=== PATIENT | male | born 1970 | race African-American/Black ===

== ENCOUNTER 2020-12-12 08:21 | Emergency (ER) | payer OTHER, SELFPAY ==
[2020-12-12 09:19] VITALS: BP 123/82; PULSE 58; RESP 12; TEMP 36.8; O2SAT 98; BMI 31.4
[2020-12-12 09:38] LABS: MANUAL DIFF FLAG NO
[2020-12-12 09:44] LABS: Basophils Percent Auto 0.2 % (0-2); Eosinophils Percent Auto 0.3 % (0-4); Hemoglobin 14.8 g/dl (14.0-18.0); Imm Gran Abs Auto 0.05 X10*3/uL (0.00-0.03); Imm Gran Pct Auto 0.5 % (0.0-0.4); Lymphocytes Absolute Auto 1.5 X10*3/uL (1.2-4.9); Lymphocytes Percent Auto 15.7 % (20-40); Mean Corpuscular HGB Conc 32.9 g/dl (31.0-36.0); Mean Corpuscular Hemoglobin 28.4 pg (27.0-33.0); Mean Corpuscular Volume 86.4 fL (80-98); Mean Platelet Volume 9.1 fL (9.4-12.4); Monocytes Absolute Auto 0.8 X10*3/uL (0.1-1.2); Monocytes Percent Auto 7.7 % (2-11); Neutrophils Absolute Auto 7.4 X10*3/uL (2.0-8.3); Neutrophils Percent Auto 75.6 % (45-73); Platelet Count 271 X10*3/uL (160-400); Red Blood Count 5.21 X10*6/uL (4.60-5.80); Red Cell Distribution Width 12.9 % (11.0-16.0); White Blood Count 9.8 X10*3/uL (4.8-10.8)
--- NOTE | 2020-12-12 09:57 | ED_ITS ---
HPI - Headache General Chief Complaint: Headache Stated Complaint: migraine Time Seen by Provider: 12/12/20 09:33 Source: patient Mode of arrival: ambulatory History of Present Illness HPI Narrative: 50yo male with a medical history migraines presenting to the ED complaining of migraine headache x a few weeks worsening yesterday s/p seeing sharepoint solutions architect. Admits to associated photophobia, nausea, vomiting, neck pain, and chest tightness yesterday, denies at present. Reports sharepoint solutions architect believes patient has temporal arteritis, would like to schedule for outpatient biopsy. Patient is followed by our neurologist Dr. Amin, currently takes Sumatriptan, Verapamil, and is on Prednisone taper. Admits headache is similar to priors just worse. Headache not maximal in onset denies LOC, visual loss, SOB, abdominal pain, weakness, numbness MD elicited complaint: headache Onset (ago): day(s) Related Data Home Medications Medication Instructions Recorded Confirmed valacyclovir 1 gram tablet 1,000 mg PO DAILY 11/27/20 Previous Rx's Medication Instructions Recorded tadalafil 20 mg tablet 20 mg PO DAILY PRN #30 tab 11/16/20 [id number]-[id number] 1 cap PO Q4-6H PRN #10 cap 12/12/20 [Fioricet] Allergies Allergy/AdvReac Type Severity Reaction Status Date / Time No Known Allergies Allergy Unverified 08/07/20 16:26 Review of Systems Review of Systems: Constitutional: No Weight loss, No Fever, No Chills ENT/Mouth: No sore throat, No Rhinorrhea, No Swallowing Difficulty Eyes: No Eye Pain, + photophobia, No visual changes Cardiovascular: +Chest Pain, No SOB, No Dyspnea on Exertion Respiratory: No Cough, No Sputum Gastrointestinal: + Nausea, + Vomiting, No Diarrhea, No Constipation, No Abdominal pain Genitourinary: No irregular bleeding, No Dysuria, No Urinary Frequency, No Hematuria Musculoskeletal: No joint pain, No Myalgias, No Joint Swelling Skin: No Skin Lesions, No rash Neuro: No Weakness, No Numbness, No Paresthesias, No Loss of Consciousness, + lightheadedness, + Headache Yes all other systems are reviewed and are negative Eyes: Eyes: Reports photophobia Neurologic: Denies Sensory deficit (Neuro) COUNT INCLUDES THE [facility] Past Medical History Attestation statement: The following information was validated with the patient. Medical History (Updated 12/12/20 @ 11:14 by NYDIA Bojorquez) Migraines Surgical History (Updated 08/27/20 @ 07:19 by DUNCAN Matos) No pertinent past surgical history Family History Family History (Updated 08/27/20 @ 07:18 by DUNCAN Matos) Father Diabetes Mother History of breast cancer Hypertension Social History Social History Advance Directives: No Advance Directives Information Provided: No Physical Exam Vital Signs: Vital Signs: Last Vital Signs Temp 98.2 F 12/12/20 09:19 Pulse 58 12/12/20 09:19 Resp 12 12/12/20 09:19 BP 123/82 12/12/20 09:19 Pulse Ox 98 12/12/20 09:19 Body Mass Index 31.4 Const: General: cooperative, healthy appearing and awake Orientation/consciousness: patient oriented x3 Limitations: no limitations HENMT: Head: Yes normal to inspection Ears: hearing grossly normal bilaterally General nose exam: Normal external nose present Face and sinus: Yes normal facial exam Mouth: Normal oral and palatal mucosa present Throat: Yes posterior oropharynx normal and Yes uvula midline Eyes: General: appearance normal, both eyes and all related structures Pupils: Equal, round and reactive pupils present EOM: EOMs intact bilaterally Direct Ophthalmoscopy: photophobia Neck: Neck: Yes normal visual inspection, Yes full ROM and Yes no meningeal signs Resp: Effort & Inspection: normal respiratory effort Auscultation: clear to auscultation bilaterally, no rales, no rhonchi and no wheezes Cardio: Rate: regular rate Heart sounds: S1 normal heart sound present and S2 normal heart sound present GI: Inspection: Yes normal to inspection Palpation (GI): Soft to palpation, nontender, no guarding and not rigid Skin: Rashes: no rashes Wounds: no wounds Neuro: General: patient oriented x3, gait normal, tone normal, moves all extremities, no meningeal signs, no focal motor deficits and CN's II-XI intact bilaterally Cranial nerves: Yes Equal, round and reactive pupils present Cognition (Neuro): normal cognition Gait exam (Neuro): Normal gait present Motor exam (neuro): 5/5 motor strength present throughout and Pronator motor function not present Sensory Exam: No Sensory deficit (Neuro) Publicity Consultant rdination: [id number] test normal Extrem: General: Yes normal to inspection Course Course Course Narrative: * 1114-labs unremarkable, troponin negative. On re-evaluation patient reports headache much improved, states he is ready for discharge. Worrisome signs and symptoms and strict return precautions discussed. Patient is to follow-up with ophthalmology and neurology. Will send Fioricet to the pharmacy as does not at home MDM - Headache MDM Narrative Medical decision making narrative: 50yo male with a medical history migraines presenting to the ED complaining of migraine headache x a few weeks worsening ye sterday s/p seeing sharepoint solutions architect. Admits to associated photophobia, nausea, vomiting, neck pain, and chest tightness yesterday, denies at present. On exam VSS, NAD/nontoxic appearing, no focal neuro deficits. Concern for complicated migraine headache. Low concern for meningitis/encephalitis, ICH/CVT. Rule out ACS. Possibly temporal arteritis although patient already on steroid taper Plan: EKG, labs, IVF/symptomatic therapies, reassess Medical Records Attestation: I reviewed the patient's medical records. Lab Data Attestation: I reviewed the patient's lab results. Result diagrams: 12/12/20 09:34 12/12/20 09:34 Labs: Lab Results 12/12/20 12/12/20 12/12/20 Range/Units 09:34 09:34 09:34 WBC 9.8 (4.8-10.8) X10*3/uL RBC 5.21 (4.60-5.80) X10*6/uL Hgb 14.8 (14.0-18.0) g/dl Hct 45.0 (42-52) % MCV 86.4 (80-98) fL MCH 28.4 (27.0-33.0) pg MCHC 32.9 (31.0-36.0) g/dl RDW 12.9 (11.0-16.0) % Plt Count 271 (160-400) X10*3/uL MPV 9.1 L (9.4-12.4) fL Immature Gran % (Auto) 0.5 H (0.0-0.4) % Neut % (Auto) 75.6 H (45-73) % Lymph % (Auto) 15.7 L (20-40) % [place] % (Auto) 7.7 (2-11) % Eos % (Auto) 0.3 (0-4) % Baso % (Auto) 0.2 (0-2) % Lymph # (Auto) 1.5 (1.2-4.9) X10*3/uL [place] # (Auto) 0.8 (0.1-1.2) X10*3/uL Eos # (Auto) 0.0 (0.0-0.4) X10*3/uL Baso # (Auto) 0.0 (0.0-0.2) X10*3/uL Abs Immat Gran (auto) 0.05 H (0.00-0.03) X10*3/uL Absolute Neuts (auto) 7.4 (2.0-8.3) X10*3/uL Absolute Nucleated RBC 0.000 (0.0-0.012) X10*3/uL Nucleated RBC % (auto) 0.0 (0.0-0.2) /100WBC Hold Purple Top SEE NOTE Hold Blue Top SEE NOTE Sodium (135-145) mmol/L Potassium (3.3-5.1) mmol/l Chloride (96-108) mmol/L Carbon Dioxide (22-29) mmol/L Anion Gap (12-20) BUN (9-16) mg/dL Creatinine (0.5-1.4) mg/dL Estim Creat Clear Calc Estimated GFR Random Glucose (60-115) mg/dL Calcium (8.4-10.2) mg/dL Troponin I High Sens (<3.5-35.0) ng/L 12/12/20 12/12/20 Range/Units 09:34 09:34 WBC (4.8-10.8) X10*3/uL RBC (4.60-5.80) X10*6/uL Hgb (14.0-18.0) g/dl Hct (42-52) % MCV (80-98) fL MCH (27.0-33.0) pg MCHC (31.0-36.0) g/dl RDW (11.0-16.0) % Plt Count (160-400) X10*3/uL MPV (9.4-12.4) fL Immature Gran % (Auto) (0.0-0.4) % Neut % (Auto) (45-73) % Lymph % (Auto) (20-40) % [place] % (Auto) (2-11) % Eos % (Auto) (0-4) % Baso % (Auto) (0-2) % Lymph # (Auto) (1.2-4.9) X10*3/uL [place] # (Auto) (0.1-1.2) X10*3/uL Eos # (Auto) (0.0-0.4) X10*3/uL Baso # (Auto) (0.0-0.2) X10*3/uL Abs Immat Gran (auto) (0.00-0.03) X10*3/uL Absolute Neuts (auto) (2.0-8.3) X10*3/uL Absolute Nucleated RBC (0.0-0.012) X10*3/uL Nucleated RBC % (auto) (0.0-0.2) /100WBC Hold Purple Top Hold Blue Top Sodium 137 (135-145) mmol/L Potassium 3.5 (3.3-5.1) mmol/l Chloride 103 (96-108) mmol/L Carbon Dioxide 28 (22-29) mmol/L Anion Gap 10 L (12-20) BUN 15 (9-16) mg/dL Creatinine 1.10 (0.5-1.4) mg/dL Estim Creat Clear Calc 98.8 Estimated GFR > 60 Random Glucose 106 (60-115) mg/dL Calcium 8.4 (8.4-10.2) mg/dL Troponin I High Sens < 3.5 (<3.5-35.0) ng/L ECG Data Attestation: I personally reviewed and interpreted this ECG as follows: ECG interpretation date: 12/12/20 Interpretation: EKG normal sinus rhythm. Rate of 64. Artifact present. Nonischemic changes. Discharge Plan Discharge Clinical Impression: Migraine Qualifiers: Migraine type: unspecified Status migrainosus presence: with status migrainosus Intractability: not intractable Qualified Code(s): G43.901 - Migraine, unspecified, not intractable, with status migrainosus Patient Disposition: Home, Self-Care Instructions: Migraine Headache (ED) Additional Instructions: Your blood work was reassuring today in the emergency department Fioricet is a headache medication, take as needed Continue taking home prescribed medications Follow-up with your neurologist and sharepoint solutions architect If her symptoms persist or worsen, pain becomes unbearable, you have weakness, persistent nausea/vomiting, chest pain or shortness of breath return to the ED Prescriptions: New [id number]-[id number] [Fioricet] 50-300-40 mg capsule 1 cap PO Q4-6H PRN (Reason: headache) Qty: 10 RF: 0 No Action tadalafil 20 mg tablet 20 mg PO DAILY PRN (Reason: erectile dysfunction) Qty: 30 RF: 3 valacyclovir 1 gram tablet 1,000 mg PO DAILY RF: 0 Referrals: Angel Espinal [Physician] - 2 days Kamila Amin MD [Physician] - 3 days
[2020-12-12] MEDS: Metoclopramide HCl 10 MG/2 ML VIAL IVPUSH (09:58)
[2020-12-12] MEDS: Butalb/Acetamin/Caff 50/325/40 TABLET 2 TAB PO (09:59)
[2020-12-12 10:01] LABS: Anion Gap 10 (12-20); Blood Urea Nitrogen 15 mg/dL (9-16); Calcium 8.4 mg/dL (8.4-10.2); Carbon Dioxide 28 mmol/L (22-29); Chloride 103 mmol/L (96-108); Creatinine Clr Calc Pharmacy 98.8; Estimated Glomerular Filt Rate > 60; Glucose Random 106 mg/dL (60-115); Potassium 3.5 mmol/l (3.3-5.1); Sodium 137 mmol/L (135-145)
[2020-12-12] MEDS: 0.9 % Sodium Chloride 1,000 ML 999 ML IVCONT (10:03)
--- NOTE | 2020-12-12 10:34 | ECG_ITS ---
Test Reason : GENERAL MEDICAL Blood Pressure : / mmHG Vent. Rate : 064 BPM Atrial Rate : 064 BPM P-R Int : 158 ms QRS Dur : 086 ms QT Int : 400 ms P-R-T Axes : 052 005 017 degrees QTc Int : 412 ms Artifact in tracing Normal sinus rhythm Cannot rule out Anterior infarct (cited on or before 12-DEC-2020) - more likely to be from lead placement Otherwise normal EKG When compared with ECG of 01-OCT-2009 21:24, No significant change was found Referred By: Valentine Ramirez Electronically Signed By:JEANIE FIELDS
[2020-12-12 11:04] LABS: Troponin-I High Sensitivity < 3.5 ng/L (<3.5-35.0)
[2020-12-12 11:33] VITALS: BP 142/85; PULSE 66; RESP 16; O2SAT 97
== END 2020-12-12 11:36 | disposition home or self-care (01) ==
PROVIDERS: Physician Assistant; Emergency Provider Internal Medicine; PCP Internal Medicine
DX: G43.901 Migraine, unspecified, not intractable, with status migrainosus (principal)
CPT/HCPCS: 36415; 80048; 84484; 85025; 93005; 96361; 96374; 99283; 99284; J2765; J3030

== ENCOUNTER 2020-12-15 10:05 | Outpatient (REF) | payer OTHER, SELFPAY ==
[2020-12-15 11:34] LABS: Anion Gap 14 (12-20); Blood Urea Nitrogen 16 mg/dL (9-16); Calcium 8.9 mg/dL (8.4-10.2); Carbon Dioxide 27 mmol/L (22-29); Chloride 103 mmol/L (96-108); Estimated Glomerular Filt Rate > 60; Glucose Random 86 mg/dL (60-115); Sodium 140 mmol/L (135-145)
[2020-12-15 11:39] LABS: Erythrocyte Sedimentation Rate 1 MM/HR (0-15)
[2020-12-17 13:32] LABS: Anti Nuclear Antibody Screen NEGATIVE (NEGATIVE)
== END 2020-12-15 10:06 | disposition home or self-care (01) ==
LOC: HO.LAB 10:05
PROVIDERS: PCP Internal Medicine; Visit Provider Psychiatry & Neurology Neurology
DX: G44.021 Chronic cluster headache, intractable (principal)
CPT/HCPCS: 36415; 80048; 85652; 86038; 86039

== ENCOUNTER 2020-12-22 08:56 | Outpatient (REF) | payer OTHER, SELFPAY ==
--- NOTE | 2020-12-22 08:59 | MR_ITS ---
EXAMINATION: MR BRAIN WITHOUT AND WITH CONTRAST CLINICAL INFORMATION: Chronic cluster headaches. COMPARISON: None available. TECHNIQUE: Multiplanar, multisequence imaging of the brain was performed before and after the intravenous administration of 10 mL of Gadavist. FINDINGS: There is no acute infarction, mass, hemorrhage, or extra-axial collection. No abnormal or unexpected intracranial enhancement is seen. The ventricles, sulci, and basilar cisterns are normal in size and configuration. A few minimal nonspecific foci of T2 hyperintensity are seen within the cerebral white matter. The midline structures appear normally formed. The corpus callosum terminates above the foramen magnum. Sella appears partially empty but is otherwise within normal limits. The flow voids of the major intracranial arteries appear intact. The bones and extracranial soft tissues are within normal limits. Mild paranasal sinus mucosal thickening is seen without fluid levels. MR/MR head/brain wo/w con IMPRESSION: No mass lesion, acute infarction, or abnormal intracranial enhancement.
== END 2020-12-22 08:57 | disposition home or self-care (01) ==
LOC: HO.MRI 08:56
PROVIDERS: Visit Provider Psychiatry & Neurology Neurology
DX: G44.021 Chronic cluster headache, intractable (principal)
CPT/HCPCS: 70553; A9585

== ENCOUNTER 2020-12-22 10:04 | Inpatient (IN) | payer OTHER, SELFPAY ==
[2020-12-22 10:08] VITALS: BP 144/80; PULSE 67; RESP 16; TEMP 37.1; BMI 31.4
--- NOTE | 2020-12-22 10:08 | ED_ITS ---
HPI - Headache General Chief Complaint: Headache Stated Complaint: dizziness Time Seen by Provider: 12/22/20 10:05 Source: patient Mode of arrival: other (stretcher from MRI) Limitations: no limitations History of Present Illness HPI Narrative: 50 yo male with L sided severe headaches since 11/27 - no precipitating factors has been seen by Neurology and ophtho - had completed prednisone taper for possible GCA - here today had MRI and it was completed, due to the lights and noise it triggered his migraine - L sided pain and feels nauseated and dizzy, rapid response called due to dizziness and not feeling well, did not fall MD elicited complaint: migraine Pertinent past history: migraines Onset (ago): day(s) (last night but much worse after MRI) Onset description: gradually and while at rest Location: left and temporal Severity: similar to previous episodes Quality & Timing: throbbing, constant and similar to previous headaches Exacerbating factors: movement of head/neck, light and noise Relieving factors: nothing Context: occurred at rest Associated symptoms: nausea and photophobia Treatments prior to arrival: other (took imitrex x 2 last night) Related Data Home Medications Medication Instructions Recorded Confirmed valacyclovir 1 gram tablet 1,000 mg PO DAILY 11/27/20 12/22/20 sumatriptan succinate 6 mg SUBCUT ONCE PRN 12/22/20 12/22/20 verapamil 120 mg PO DAILY 12/22/20 12/22/20 Previous Rx's Medication Instructions Recorded tadalafil 20 mg tablet 20 mg PO DAILY PRN #30 tab 11/16/20 [id number]-qekcgtdjxprbx-yrdc 1 cap PO Q4-6H PRN #10 cap 12/12/20 [Fioricet] Allergies Allergy/AdvReac Type Severity Reaction Status Date / Time No Known Allergies Allergy Unverified 08/07/20 16:26 Review of Systems Review of Systems: Constitutional : No Fever, No Chills, No Fatigue ENT/Mouth : No sore throat, No Rhinorrhea Eyes: pos Eye Pain, No Swelling, No Redness Cardiovascular : No Chest Pain, No SOB, No Dyspnea on Exertion Respiratory : No Cough, No Sputum Gastrointestinal : pos Nausea, No Vomiting, No Diarrhea, No abdominal Pain Genitourinary : No Dysuria, No Urinary Frequency, No Hematuria, Musculoskeletal : No joint pain, No Myalgias, No Joint Swelling Skin : No Skin Lesions, No rash Neuro : No Weakness, No Numbness, pos Dizziness, positive Headache Psych : No Anxiety/Panic, No Depression Heme/Lymph: No Bruising, No Bleeding,No Lymphadenopathy Endocrine : No Polyuria, No Polydipsia All other systems reviewed and are negative [facility] Past Medical History Attestation statement: The following information was validated with the patient. Medical History Migraines Surgical History No pertinent past surgical history Family History Family History (Updated 08/27/20 @ 07:18 by Susy Mckenzie Spike) Father Diabetes Mother History of breast cancer Hypertension Social History Social History (Updated 12/22/20 @ 10:20 by Sandra Aguilar DO) Smoking Status: Never smoker Use of substances other than those prescribed or required for medical reasons: No Advance Directives: Yes Advance Directives Information Provided: Yes Advance Directives on File: No Physical Exam Vital Signs: Vital Signs: Last Vital Signs Temp 98.8 F 12/22/20 13:21 Pulse 64 12/22/20 13:21 Resp 16 12/22/20 13:21 BP 134/75 12/22/20 13:21 Pulse Ox 97 12/22/20 13:21 Body Mass Index 31.4 Appearance: Alert. Oriented X3. Anxious in pain, mild acute distress Eyes: marked photophobia ENT: Pharynx normal. Neck: Normal inspection. Neck supple. CVS: Normal heart rate and rhythm. Pulses normal. Respiratory: No respiratory distress. Breath sounds normal. Abdomen: Soft and nontender. Skin: Skin warm and dry. Normal skin color. Normal skin turgor. Extremities: No lower extremity edema. No calf ttp Neuro: Oriented X 3. No motor deficit. No sensory deficit. Course Course Course Narrative: MRI negative for mass/infarction - called for STAT read given patient now in ED repeat pain medications, still with headache, no response to IV dilaudid after migraine cocktail and O2, will try IV dexamethasone if no improvement may need admission patient states he wants to stay he does not feel better dsicussed with Dr. Amin start on DHE protocol will start on 10mg metoclopramide over 30 min followed by 0.5 DHE over 1 minute, if goes well call pharmacy they will put in rest of protocol MDM - Headache MDM Narrative Medical decision making narrative: 50 yo male with migraines no AC therapy under the care of neurology and ophthalmology completed MRI today but due to the lights and noise it worsened his headache, doubt SAH/[employer] infection, will need IV medications to improve pain - reglan/benadryl/ toradol/magnesium, dispo per results and workup, has appointment with Dr. Espinal at 130pm today Lab Data Result diagrams: 12/22/20 15:07 12/22/20 15:07 Labs: Lab Results 12/22/20 Range/Units 15:07 WBC 5.3 (4.8-10.8) X10*3/uL RBC 5.15 (4.60-5.80) X10*6/uL Hgb 14.5 (14.0-18.0) g/dl Hct 44.4 (42-52) % MCV 86.2 (80-98) fL MCH 28.2 (27.0-33.0) pg MCHC 32.7 (31.0-36.0) g/dl RDW 12.4 (11.0-16.0) % Plt Count 226 (160-400) X10*3/uL MPV 9.6 (9.4-12.4) fL Immature Gran % (Auto) 0.2 (0.0-0.4) % Neut % (Auto) 58.7 (45-73) % Lymph % (Auto) 30.7 (20-40) % [place] % (Auto) 8.9 (2-11) % Eos % (Auto) 0.9 (0-4) % Baso % (Auto) 0.6 (0-2) % Lymph # (Auto) 1.6 (1.2-4.9) X10*3/uL [place] # (Auto) 0.5 (0.1-1.2) X10*3/uL Eos # (Auto) 0.1 (0.0-0.4) X10*3/uL Baso # (Auto) 0.0 (0.0-0.2) X10*3/uL Abs Immat Gran (auto) 0.01 (0.00-0.03) X10*3/uL Absolute Neuts (auto) 3.1 (2.0-8.3) X10*3/uL Absolute Nucleated RBC 0.000 (0.0-0.012) X10*3/uL Nucleated RBC % (auto) 0.0 (0.0-0.2) /100WBC Critical Care Time Critical Care Time Critical Care Time: Yes Total Critical Care Time: 35 Attestation: medical consult, repeat IV medications, call to radiology for stat MRI read. I attest to this time spent taking care of the patient Discharge Plan Discharge Clinical Impression: Migraine Qualifiers: Migraine type: without aura Status migrainosus presence: with status migrainosus Intractability: intractable Qualified Code(s): G43.011 - Migraine without aura, intractable, with status migrainosus Patient Disposition: Admitted As Inpatient Additional Instructions: return to ED for any worsening symptoms or concerns MRI read: There is no acute infarction, mass, hemorrhage, or extra-axial collection. No abnormal or unexpected intracranial enhancement is seen. The ventricles, sulci, and basilar cisterns are normal in size and configuration. A few minimal nonspecific foci of T2 hyperintensity are seen within the cerebral white matter. The midline structures appear normally formed. The corpus callosum terminates above the foramen magnum. Sella appears partially empty but is otherwise within normal limits. The flow voids of the major intracranial arteries appear intact. The bones and extracranial soft tissues are within normal limits. Mild paranasal sinus mucosal thickening is seen without fluid levels. MR/MR head/brain wo/w con IMPRESSION: No mass lesion, acute infarction, or abnormal intracranial enhancement.
[2020-12-22] MEDS: Ketorolac Tromethamine 30 MG/ML VIAL IVPUSH (10:27)
[2020-12-22] MEDS: Magnesium Sulfate/H2O 2 GM/50 ML PIGGYBACK IV (10:27)
[2020-12-22] MEDS: 0.9 % Sodium Chloride 1,000 ML 999 ML IVCONT (10:27)
[2020-12-22] MEDS: Metoclopramide HCl 10 MG/2 ML VIAL IVPUSH (10:27)
[2020-12-22] MEDS: diphenhydrAMINE HCL 50 MG/ML VIAL 25 MG IVPUSH (10:28)
[2020-12-22] MEDS: HYDROmorphone HCl 1 MG/ML SYRINGE IVPUSH (13:05)
[2020-12-22 13:21] VITALS: BP 134/75; PULSE 64; RESP 16; TEMP 37.1; O2SAT 97
[2020-12-22] MEDS: dexAMETHasone sod phosphate 4 MG/ML VIAL 6 MG IVPUSH (14:15)
[2020-12-22 15:40] LABS: MANUAL DIFF FLAG NO
[2020-12-22 15:44] LABS: Basophils Percent Auto 0.6 % (0-2); Eosinophils Absolute Auto 0.1 X10*3/uL (0.0-0.4); Eosinophils Percent Auto 0.9 % (0-4); Hematocrit 44.4 % (42-52); Hemoglobin 14.5 g/dl (14.0-18.0); Imm Gran Abs Auto 0.01 X10*3/uL (0.00-0.03); Imm Gran Pct Auto 0.2 % (0.0-0.4); Lymphocytes Absolute Auto 1.6 X10*3/uL (1.2-4.9); Lymphocytes Percent Auto 30.7 % (20-40); Mean Corpuscular HGB Conc 32.7 g/dl (31.0-36.0); Mean Corpuscular Hemoglobin 28.2 pg (27.0-33.0); Mean Corpuscular Volume 86.2 fL (80-98); Mean Platelet Volume 9.6 fL (9.4-12.4); Monocytes Absolute Auto 0.5 X10*3/uL (0.1-1.2); Monocytes Percent Auto 8.9 % (2-11); Neutrophils Absolute Auto 3.1 X10*3/uL (2.0-8.3); Neutrophils Percent Auto 58.7 % (45-73); Platelet Count 226 X10*3/uL (160-400); Red Blood Count 5.15 X10*6/uL (4.60-5.80); Red Cell Distribution Width 12.4 % (11.0-16.0); White Blood Count 5.3 X10*3/uL (4.8-10.8)
[2020-12-22 15:50] LABS: INTERNATIONAL NORM RATIO 1.1 (0.9-1.1); Prothrombin Time 12.9 SEC (10.8-13.0)
[2020-12-22 15:52] LABS: Partial Thromboplastin Time 38.1 SEC (24.1-38.0)
[2020-12-22 16:03] LABS: COVID-19 Test Negative (Negative); IDNOW Serial# 9DD0AD1C
[2020-12-22 16:09] LABS: Anion Gap 11 (12-20); Blood Urea Nitrogen 12 mg/dL (9-16); Calcium 8.3 mg/dL (8.4-10.2); Carbon Dioxide 27 mmol/L (22-29); Chloride 105 mmol/L (96-108); Creatinine Clr Calc Pharmacy 87.6; Estimated Glomerular Filt Rate > 60; Glucose Random 94 mg/dL (60-115); Potassium 4.5 mmol/L (3.3-5.1); Sodium 138 mmol/L (135-145)
--- NOTE | 2020-12-22 16:28 | PM.EVENT ---
Event Note Date of Service: 12/22/20 Event Note: Patient seen and examined independently and was present during page portion of E/M service. Agree with midlevel's history, physical, assessment, and plan. 50M presented with severe migraines migraines DHE protocol neuro eval
[2020-12-22 16:35] VITALS: BP 137/70; PULSE 68; RESP 18
[2020-12-22] MEDS: Dihydroergotamine Mesylate 1 MG/ML AMPUL 0.5 MG IVPUSH (16:41)
[2020-12-22 19:43] VITALS: BP 137/77; PULSE 78; RESP 20; TEMP 36.2; O2SAT 96
--- NOTE | 2020-12-22 21:15 | HP_ITS ---
DATE OF SERVICE: 12/22/2020 CHIEF COMPLAINT: Headache. HISTORY OF PRESENT ILLNESS: A 50-year-old man with a history of migraine headaches, presents with complaints of intractable migraine. He reports that this has been ongoing over the last 3 weeks and it has been mostly off and on, but today, he went for an MRI and experienced a severe headache and was brought over to the ER for further evaluation. He reports that he does take verapamil and Imitrex at home, which usually abort his migraines. He reports his pain is near the left advent, radiating to the left eye socket. He does have photophobia. He denies any nausea or vomiting. In the ER, he received multiple medications including Benadryl, magnesium, Toradol, Reglan, Dilaudid, Decadron, and was given a dose of D.H.E. with good effect. His labs were all within acceptable limits. Vital signs stable. He will be admitted for further management and treatment of acute intractable migraine headache. PAST MEDICAL HISTORY: Migraine headaches. PAST SURGICAL HISTORY: None. FAMILY HISTORY: Father had diabetes, stroke. He had a younger brother at the age of 82 of myocardial infarction. SOCIAL HISTORY: Denies any alcohol, tobacco, or illicit drug use. ALLERGIES: NO KNOWN ALLERGIES. MEDICATIONS: 1. Fioricet 1 cap p.o. q4-6 hours as needed for headache. 2. Sumatriptan succinate 6 mg subcu p.r.n. 3. Tadalafil 20 mg p.o. daily p.r.n. 4. Valacyclovir 1000 mg p.o. daily. 5. Verapamil 120 mg p.o. daily. REVIEW OF SYSTEMS: CONSTITUTIONAL: Denies any recent fever, chills, or decrease in appetite. RESPIRATORY: Denies any shortness of breath, cough, or sputum production. CARDIOVASCULAR: Denies any chest pain, orthopnea, PND, or edema. GASTROINTESTINAL: Denies any dysphagia, abdominal pain, nausea, vomiting, or diarrhea. GENITOURINARY: Denies any dysuria, frequency, or hematuria. MUSCULOSKELETAL: Denies any joint pain or swelling. NEUROPSYCH: Denies any weakness or seizures. All other systems are reviewed and are negative. PHYSICAL EXAMINATION: CONSTITUTIONAL: Resting in bed, appearing in no acute distress. VITAL SIGNS: 98.8, , 18, 137/70, 97% on room air. SKIN: Intact without rash or open sores. HEENT: Head is normocephalic, atraumatic. Eyes, pupils are PERRLA. Sclerae anicteric. Mouth and throat, mucous membrane are intact and moist. NECK: Supple. No lymphadenopathy. No JVD noted. CHEST: Clear to auscultation without wheezes, rhonchi, or rales. HEART: Regular rate and rhythm. Clear S1, S2. No murmurs, rubs, or gallops. ABDOMEN: Positive bowel sounds. Soft, nontender. No hepatomegaly or splenomegaly noted. NEURO: The patient is alert and oriented x3. Cranial nerves II through XII are grossly intact without focal deficits. LABORATORY DATA: Sodium 138, potassium is 4.5, chloride is 105, bicarb is 27, BUN is 12, creatinine is 1.24. WBC is 5.3, hemoglobin 14.5, hematocrit 44.4, platelets 226. ASSESSMENT AND PLAN: 50-year-old man, who is being admitted with intractable migraine headache. 1. Intractable migraine. Received D.H.E. with good effect. We will continue Reglan as needed 30 minutes prior and EEG every 8 hours, next dose at midnight. The patient to be evaluated by Neurology in the morning. Continue verapamil. 2. MRI showed no acute mass, infarction, or other acute intracranial abnormality. 3. Deep vein thrombosis prophylaxis with early ambulation. 4. Case discussed with Dr. Georges. 5. Full code. COMPA Marino MD JR/CEDRICL / [id number]
[2020-12-22 21:55] VITALS: BMI 31.9
[2020-12-22] MEDS: Metoclopramide HCl 10 MG TABLET PO (23:47)
[2020-12-22] MEDS: 0.9 % Sodium Chloride Flush 3 ML SYRINGE IVFLUSH (23:47)
[2020-12-23] VITALS: BP 140/75; PULSE 80; RESP 18; TEMP 37; O2SAT 98
[2020-12-23] MEDS: Dihydroergotamine Mesylate 1 MG/ML AMPUL 0.5 MG IVPUSH ×2 (00:29→12:36)
[2020-12-23 03:59] VITALS: BP 135/69; PULSE 76; RESP 18; TEMP 36.9; O2SAT 98
[2020-12-23 06:21] LABS: MANUAL DIFF FLAG NO
[2020-12-23 06:26] LABS: Basophils Percent Auto 0.1 % (0-2); Eosinophils Percent Auto 0.5 % (0-4); Hematocrit 45.9 % (42-52); Hemoglobin 14.7 g/dl (14.0-18.0); Imm Gran Abs Auto 0.02 X10*3/uL (0.00-0.03); Imm Gran Pct Auto 0.3 % (0.0-0.4); Lymphocytes Absolute Auto 1.7 X10*3/uL (1.2-4.9); Lymphocytes Percent Auto 21.8 % (20-40); Mean Corpuscular Hemoglobin 27.6 pg (27.0-33.0); Mean Corpuscular Volume 86.3 fL (80-98); Mean Platelet Volume 9.5 fL (9.4-12.4); Monocytes Absolute Auto 0.6 X10*3/uL (0.1-1.2); Monocytes Percent Auto 7.6 % (2-11); Neutrophils Absolute Auto 5.4 X10*3/uL (2.0-8.3); Neutrophils Percent Auto 69.7 % (45-73); Platelet Count 225 X10*3/uL (160-400); Red Blood Count 5.32 X10*6/uL (4.60-5.80); Red Cell Distribution Width 12.7 % (11.0-16.0); White Blood Count 7.8 X10*3/uL (4.8-10.8)
[2020-12-23 06:53] LABS: Anion Gap 11 (12-20); Blood Urea Nitrogen 15 mg/dL (9-16); Calcium 8.4 mg/dL (8.4-10.2); Carbon Dioxide 25 mmol/L (22-29); Chloride 104 mmol/L (96-108); Creatinine Clr Calc Pharmacy 93.7; Estimated Glomerular Filt Rate > 60; Glucose Random 87 mg/dL (60-115); Potassium 4.3 mmol/L (3.3-5.1); Sodium 136 mmol/L (135-145)
[2020-12-23 07:16] VITALS: BP 145/81; PULSE 84; RESP 20; TEMP 36.8; O2SAT 95
[2020-12-23] MEDS: VerapamiL HCL SR 120 MG TABLET.ER PO (07:53)
[2020-12-23] MEDS: 0.9 % Sodium Chloride Flush 3 ML SYRINGE IVFLUSH (07:53)
--- NOTE | 2020-12-23 10:09 | PM.NEUROCN ---
History of Present Illness Data of Consult Service Date: 12/23/20 Primary Care Provider: Robson Mccoy MD 50 years old man with left-sided cluster headaches previously responsive to steroid treatment. 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 Some blood workup an MRI of brain was performed. He was going through a cluster and continued to have severe headaches. Headache was mostly around the left eye and forehead, severe, poking type. With lack of response to Imitrex he came to emergency room yesterday. Headache frequency recently was about 3 headaches a day which would respond to Imitrex but without it could continue all day. His dose of verapamil was recently increased to twice a day. Yesterday he received a dose of DHE and then another dose in the middle of night. Now he was feeling much better. Review of Systems Review of Systems: No recent trauma cold or flu-like illness. PMFSH Past Medical History Medical History Migraines Family History Family History (Updated 08/27/20 @ 07:18 by Susy Mckenzie [facility]) Father Diabetes Mother History of breast cancer Hypertension Surgical History Surgical History No pertinent past surgical history Social History Social History (Updated 12/22/20 @ 10:20 by Sandra Aguilar DO) Household Members: Family Household Members Other:: Mother Housing: House Do you presently have visiting nurse or other home services: No Smoking Status: Never smoker Use of substances other than those prescribed or required for medical reasons: Yes Substance Use Type: Marijuana Substance Use Frequency: Occasionally Last Used Substance: Unknown Currently Displaying Signs/Symptoms of Drug Intoxication Withdrawal: No Advance Directives: Yes Advance Directives Information Provided: Yes Advance Directives on File: No Advance Directives Date on File: 12/22/20 Do you have thoughts of harming others: None Do you have a plan to hurt others: No Plan Recently lost weight without trying: No service: No Meds Allergies Allergy/AdvReac Type Severity Reaction Status Date / Time No Known Allergies Allergy Unverified 08/07/20 16:26 Home Medications Medication Instructions Recorded Confirmed Type valacyclovir 1 gram tablet 1,000 mg PO DAILY 11/27/20 12/22/20 History sumatriptan succinate 6 mg SUBCUT ONCE PRN 12/22/20 12/22/20 History verapamil 120 mg PO DAILY 12/22/20 12/22/20 History Physical Exam Vital Signs: Vital Signs: Last Vital Signs Temp 98.3 F 12/23/20 07:16 Pulse 84 12/23/20 07:16 Resp 20 12/23/20 07:16 BP 145/81 H 12/23/20 07:16 Pulse Ox 95 12/23/20 07:16 Body Mass Index 31.9 He was alert and awake with normal spontaneity of speech fluency comprehension and affect. Pupils were round reactive to light. Face was symmetrical. There was no pronator drift. Deep tendon reflexes were 1+ with flexor plantars. Affect was normal. Results Labs CBC & Chem 7: 12/23/20 05:21 12/23/20 05:21 Labs: Short CBC 12/22/20 12/23/20 Range/Units 15:07 05:21 WBC 5.3 7.8 (4.8-10.8) X10*3/uL Hgb 14.5 14.7 (14.0-18.0) g/dl Hct 44.4 45.9 (42-52) % Plt Count 226 225 (160-400) X10*3/uL BMP 12/22/20 12/23/20 15:07 05:21 Sodium 138 136 Potassium 4.5 4.3 Chloride 105 104 Carbon Dioxide 27 25 BUN 12 15 Creatinine 1.24 1.17 Calcium 8.3 L D 8.4 His recent sed rate was 1. His MRI of brain with contrast revealed few punctate white matter signal abnormalities but otherwise no significant pathology. Assessment and Plan (1) Cluster headache syndrome: Status: Acute 50 years old man with left-sided cluster headache syndrome that was stable in the past but recently or during this cluster pain episodes were not getting controlled. With DHE treatment he was much better now. Examination was normal and his laboratories and imaging have not reveal any significant finding. My recommendations are to increase his verapamil to 360 mg extended release 1 at bedtime, give him 100% oxygen p.r.n. and he should see me as an outpatient in few weeks time.
--- NOTE | 2020-12-23 10:11 | MHC.CM.PN ---
dc plan home no services
[2020-12-23 10:31] VITALS: BMI 31.9
[2020-12-23 11:05] VITALS: BP 136/80; PULSE 70; RESP 20; TEMP 36.2; O2SAT 97
[2020-12-23] MEDS: Metoclopramide HCl 10 MG TABLET PO (12:07)
--- NOTE | 2020-12-23 13:32 | PM.DS ---
DS: Providers Provider Date of Service: 12/23/20 Date of admission: 12/22/20 17:36 Primary care physician: Robson Mccoy MD Consults: 12/22/20 17:36 Consult to Neurology Routine Consulting Provider: [facility] Reason for consultation: SEVERE MIGRAINE Has provider been notified: No DS: Diagnosis Discharge Diagnosis (1) Cluster headache syndrome: Status: Acute DS: Medications Discharge Medications Home Medications: Home Medications Medication Instructions Recorded Confirmed valacyclovir 1 gram tablet 1,000 mg PO DAILY 11/27/20 12/22/20 sumatriptan succinate 6 mg SUBCUT ONCE PRN 12/22/20 12/22/20 Previous Rx's Medication Instructions Recorded tadalafil 20 mg tablet 20 mg PO DAILY PRN #30 tab 11/16/20 [id number]-[id number]-[id number] 1 cap PO Q4-6H PRN #10 cap 12/12/20 [Fioricet] verapamil 360 mg PO DAILY #30 cap 12/23/20 DS: Summary Hospital Course Hospital Course: Patient was admitted for severe headache. He was given ergotamine protocol and significantly improved. He was seen by Neurology who felt these were likely cluster headaches. Recommended increasing verapamil to 360 mg daily and using home oxygen 100% for abortive therapy. Time Spent with Patient Time attestation: Total time spent providing and/or coordinating discharge services: Discharge coordination time: Greater than 30 minutes Physical Exam Vital Signs: Vital Signs: Last Vital Signs Temp 97.1 F 12/23/20 11:05 Pulse 70 12/23/20 11:05 Resp 20 12/23/20 11:05 BP 136/80 12/23/20 11:05 Pulse Ox 97 12/23/20 11:05 Body Mass Index 31.9 General: AO X 3, no acute distress Resp: CTA bilateral CVS: S1,S2,RRR GI: soft, non tender, non distended Neuro: motor grossly intact Psych: appropriate affect DS: Data Data Completed and Pending Labs on day of discharge: Laboratory Tests 12/22/20 12/22/20 12/22/20 15:07 15:07 15:07 WBC 5.3 RBC 5.15 Hgb 14.5 Hct 44.4 MCV 86.2 MCH 28.2 MCHC 32.7 RDW 12.4 Plt Count 226 MPV 9.6 Immature Gran % (Auto) 0.2 Neut % (Auto) 58.7 Lymph % (Auto) 30.7 [place] % (Auto) 8.9 Eos % (Auto) 0.9 Baso % (Auto) 0.6 Lymph # (Auto) 1.6 [place] # (Auto) 0.5 Eos # (Auto) 0.1 Baso # (Auto) 0.0 Abs Immat Gran (auto) 0.01 Absolute Neuts (auto) 3.1 Absolute Nucleated RBC 0.000 Nucleated RBC % (auto) 0.0 PT 12.9 INR 1.1 APTT 38.1 H Sodium 138 Potassium 4.5 Chloride 105 Carbon Dioxide 27 Anion Gap 11 L BUN 12 Creatinine 1.24 Estim Creat Clear Calc 87.6 Estimated GFR > 60 Random Glucose 94 Calcium 8.3 L D COVID-19 (LINANE) [employer] 12/22/20 12/23/20 12/23/20 15:07 05:21 05:21 WBC 7.8 RBC 5.32 Hgb 14.7 Hct 45.9 MCV 86.3 MCH 27.6 MCHC 32.0 RDW 12.7 Plt Count 225 MPV 9.5 Immature Gran % (Auto) 0.3 Neut % (Auto) 69.7 Lymph % (Auto) 21.8 [place] % (Auto) 7.6 Eos % (Auto) 0.5 Baso % (Auto) 0.1 Lymph # (Auto) 1.7 [place] # (Auto) 0.6 Eos # (Auto) 0.0 Baso # (Auto) 0.0 Abs Immat Gran (auto) 0.02 Absolute Neuts (auto) 5.4 Absolute Nucleated RBC 0.000 Nucleated RBC % (auto) 0.0 PT INR APTT Sodium 136 Potassium 4.3 Chloride 104 Carbon Dioxide 25 Anion Gap 11 L BUN 15 Creatinine 1.17 Estim Creat Clear Calc 93.7 Estimated GFR > 60 Random Glucose 87 Calcium 8.4 COVID-19 (LIANNE) Negative COVID-19 Clin Com See Note Discharge Plan Discharge Patient Disposition: Home, Self-Care Referrals: Robson Mccoy MD [Primary Care Provider] - Discharge Medications: New verapamil 360 mg capsule,ext rel. pellets 24 hr 360 mg PO DAILY Qty: 30 RF: 0 Continued tadalafil 20 mg tablet 20 mg PO DAILY PRN (Reason: erectile dysfunction) Qty: 30 RF: 3 valacyclovir 1 gram tablet 1,000 mg PO DAILY RF: 0 [id number] [Fioricet] 50-300-40 mg capsule 1 cap PO Q4-6H PRN (Reason: headache) Qty: 10 RF: 0 sumatriptan succinate 6 mg/0.5 mL pen injector 6 mg subcut ONCE PRN (Reason: Headache) RF: 0 Discontinued verapamil 120 mg capsule,ext rel. pellets 24 hr 120 mg PO DAILY RF: 0 Discharge Orders: Discharge Order (Routine); Ordered 12/23/20 Ordered By: Otis Georges Activity on Discharge: As tolerated Stand Alone Forms: Patient Portal Discharge page, Work/School Release Activity Restrictions/Additional Instructions: return to ED for any worsening symptoms or concerns MRI read: There is no acute infarction, mass, hemorrhage, or extra-axial collection. No abnormal or unexpected intracranial enhancement is seen. The ventricles, sulci, and basilar cisterns are normal in size and configuration. A few minimal nonspecific foci of T2 hyperintensity are seen within the cerebral white matter. The midline structures appear normally formed. The corpus callosum terminates above the foramen magnum. Sella appears partially empty but is otherwise within normal limits. The flow voids of the major intracranial arteries appear intact. The bones and extracranial soft tissues are within normal limits. Mild paranasal sinus mucosal thickening is seen without fluid levels. MR/MR head/brain wo/w con IMPRESSION: No mass lesion, acute infarction, or abnormal intracranial enhancement. Visit Report Forms: Patient Portal Discharge page Care Plan Goals: manage cluster headaches Health Concerns: cluster headaches Plan of Treatment: increase verapamil to 360mg daily, look into oxygen for home for abortive therapy, follow up neurology Patient Instructions: Migraine Headache (ED)
--- NOTE | 2020-12-23 13:39 | MHC.CM.PN ---
pt dcd home no skilled servcewis ordered by
== END 2020-12-23 16:20 | disposition home or self-care (01) | DRG 103 ==
LOC: HO.ED 14:41 → HO.EDOVER 17:43 → HO.IMC 18:32
PROVIDERS: Nurse Practitioner Acute Care; Admitting Provider Internal Medicine; Emergency Provider Emergency Medicine; PCP Internal Medicine; Visit Provider Internal Medicine
DX: G44.009 Cluster headache syndrome, unspecified, not intractable (principal); Z20.822 Contact with and (suspected) exposure to COVID-19; Z79.899 Other long term (current) drug therapy
CPT/HCPCS: 36415; 80048; 85025; 85610; 85730; 87635; 96365; 96367; 96375; 99285; 99291; J1100; J1110; J1170; J1200; J1885; J2765; J3475

== ENCOUNTER 2021-01-06 09:05 | Outpatient (REF) | payer OTHER, SELFPAY ==
[2021-01-06 12:07] LABS: MANUAL DIFF FLAG NO
[2021-01-06 12:13] LABS: Basophils Percent Auto 0.4 % (0-2); Eosinophils Absolute Auto 0.1 X10*3/uL (0.0-0.4); Eosinophils Percent Auto 2.6 % (0-4); Hematocrit 44.4 % (42-52); Hemoglobin 14.5 g/dl (14.0-18.0); Imm Gran Abs Auto 0.01 X10*3/uL (0.00-0.03); Imm Gran Pct Auto 0.2 % (0.0-0.4); Lymphocytes Absolute Auto 1.9 X10*3/uL (1.2-4.9); Lymphocytes Percent Auto 39.7 % (20-40); Mean Corpuscular HGB Conc 32.7 g/dl (31.0-36.0); Mean Corpuscular Hemoglobin 27.8 pg (27.0-33.0); Mean Corpuscular Volume 85.2 fL (80-98); Monocytes Absolute Auto 0.4 X10*3/uL (0.1-1.2); Monocytes Percent Auto 8.1 % (2-11); Neutrophils Absolute Auto 2.3 X10*3/uL (2.0-8.3); Platelet Count 330 X10*3/uL (160-400); Red Blood Count 5.21 X10*6/uL (4.60-5.80); Red Cell Distribution Width 12.6 % (11.0-16.0); White Blood Count 4.7 X10*3/uL (4.8-10.8)
[2021-01-06 12:26] LABS: Glucose Urine UA NEG (NEG); Leukocyte Esterase Urine NEG (NEG); Nitrite Urine NEG (NEG); Specific Gravity - Urine 1.025 (1.005-1.025); Urine Blood NEG (NEG); Urine Ketones NEG (NEG); Urine Protein NEG (NEG-TRACE)
[2021-01-06 12:28] LABS: Appearance Urine CLEAR; Color Urine YELLOW
[2021-01-06 12:34] LABS: Mucus Urine TRACE /LPF; RBC Urine 0 /HPF (0); Squamous Epithelial Cell Urine 2+ /LPF
[2021-01-06 12:45] LABS: Alanine Aminotransferase 16 U/L (0-40); Albumin Level 4.2 g/dL (3.5-5.0); Alkaline Phosphatase 74 U/L (39-117); Anion Gap 10 (12-20); Aspartate Amino Transferase 13 U/L (5-37); Bilirubin Total 0.8 mg/dL (0.0-1.0); Blood Urea Nitrogen 12 mg/dL (9-16); C Reactive Protein 0.15 mg/dL (< or = 0.50); Carbon Dioxide 28 mmol/L (22-29); Chloride 107 mmol/L (96-108); Estimated Glomerular Filt Rate > 60; Glucose Random 82 mg/dL (60-115); Potassium 4.1 mmol/L (3.3-5.1); Rheumatoid Factor < 15.0 IU/mL (<15.0); Sodium 141 mmol/L (135-145); Total Protein 6.6 g/dL (6.5-8.0)
[2021-01-06 12:50] LABS: Erythrocyte Sedimentation Rate 1 MM/HR (0-15)
[2021-01-07 10:47] LABS: Antibody to SS-A Antigen <1.0 NEG AI (<1.0 NEG); Antibody to SS-B Antigen <1.0 NEG AI (<1.0 NEG)
[2021-01-07 11:37] LABS: Cyclic Citrullinated Peptide <16 UNITS
[2021-01-07 13:11] LABS: Anti Nuclear Antibody Screen NEGATIVE (NEGATIVE)
[2021-01-07 13:57] LABS: Beta-2 Microglobulin, Serum 1.64 mg/L (< OR = 2.51)
[2021-01-08 13:16] LABS: PTT (LAC) Screen 33 sec (< OR = 40)
[2021-01-10 21:41] LABS: Cardiolipin IgG Ab <14 GPL; Cardiolipin IgM Ab <12 MPL
== END 2021-01-06 09:06 | disposition home or self-care (01) ==
LOC: HO.LAB 09:05
PROVIDERS: PCP Internal Medicine; Visit Provider Student in an Organized Health Care Education/Training Program
DX: R51.9 Headache, unspecified (principal); M25.50 Pain in unspecified joint
CPT/HCPCS: 36415; 80053; 81001; 82232; 85025; 85597; 85613; 85652; 85730; 86038; 86039; 86140; 86147; 86200; 86235; 86431

== ENCOUNTER 2021-01-10 10:00 | Outpatient (REF) | payer OTHER, SELFPAY ==
[2021-01-10 11:07] LABS: C Reactive Protein 0.15 mg/dL (< or = 0.50); Rheumatoid Factor < 15.0 IU/mL (<15.0)
[2021-01-10 11:22] LABS: Glucose Urine UA NEG (NEG); Leukocyte Esterase Urine NEG (NEG); Nitrite Urine NEG (NEG); PH 5.5 (5.0-8.0); Specific Gravity - Urine >= 1.030 (1.005-1.025); Urine Blood NEG (NEG); Urine Ketones NEG (NEG); Urine Protein NEG (NEG-TRACE)
[2021-01-10 11:24] LABS: Appearance Urine CLEAR; Color Urine YELLOW
[2021-01-10 14:27] LABS: Erythrocyte Sedimentation Rate 2 MM/HR (0-15)
[2021-01-11 06:17] LABS: Lyme Abs Screen <0.90 index
[2021-01-12 17:02] LABS: Homocysteine 10.3 umol/L (<11.4)
[2021-01-12 18:37] LABS: Anti Nuclear Antibody Screen NEGATIVE (NEGATIVE)
[2021-01-13 13:08] LABS: Neutrophil Cyto Ab Screen NEGATIVE (NEGATIVE)
== END 2021-01-10 10:01 | disposition home or self-care (01) ==
LOC: HO.LAB 10:00
PROVIDERS: PCP Internal Medicine; Visit Provider Ophthalmology
DX: H46.9 Unspecified optic neuritis (principal)
CPT/HCPCS: 36415; 81003; 83090; 85652; 86021; 86038; 86039; 86140; 86431; 86618

== ENCOUNTER 2021-01-13 13:35 | Outpatient (REF) | payer OTHER, SELFPAY ==
--- NOTE | ~2021-01-13 | US_ITS ---
EXAMINATION: ULTRASOUND OF THE TEMPORAL ARTERIES CLINICAL INFORMATION: This a 50-year-old male with headache. Possible temporal arteritis. COMPARISON: None TECHNIQUE: Color-flow duplex imaging of the temporal arteries was performed. FINDINGS: RIGHT TEMPORAL ARTERY: The right temporal artery appears to be patent. The peak systolic velocity in the parietal portion measures 80 cm/s. The diastolic velocity measures 12 cm/s. LEFT TEMPORAL ARTERY: The left temporal artery appears to be patent. No significant thickening is seen. No stenosis is identified. The frontal portion of the left temporal artery peak systolic velocity is 58 cm/s. The end-diastolic velocity is 11 cm/s. The parietal portion of the left temporal artery peak systolic velocity 65 cm/s. The end-diastolic velocity measures 9 cm/s. The common midportion of the left common temporal artery peak systolic velocity is 80 cm/s. End-diastolic velocity is 18 cm/s. The normal velocity in the common portion of the artery is felt to be 55 cm/s +/- 13. Therefore, this would represent an elevated velocity. US/US soft tiss head and/or neck IMPRESSION: 1. No dark halo is seen around the left temporal artery suggesting edema. No turbulent flow is seen. No focal left temporal artery stenosis is demonstrated. However, there appears to be an elevated velocity in the left common temporal artery. This can be found in temporal arteritis.
== END 2021-01-13 13:36 | disposition home or self-care (01) ==
LOC: HO.US 13:35
PROVIDERS: PCP Internal Medicine; Visit Provider Student in an Organized Health Care Education/Training Program
DX: R51.9 Headache, unspecified (principal)
CPT/HCPCS: 76536

== ENCOUNTER 2021-01-26 13:36 | Outpatient (REF) | payer OTHER, SELFPAY ==
[2021-01-26 13:58] VITALS: BMI 30.1
[2021-01-26 13:59] VITALS: BP 141/82; PULSE 75; RESP 16; TEMP 36.5; O2SAT 98
[2021-01-26 15:53] VITALS: BP 126/85; PULSE 71; RESP 16; O2SAT 97
== END 2021-01-26 13:37 | disposition home or self-care (01) ==
LOC: HO.MS 13:36
PROVIDERS: PCP Internal Medicine; Visit Provider Ophthalmology
PROC: (CPT 37609; principal; 2021-01-26 15:10)
DX: H47.012 Ischemic optic neuropathy, left eye (principal); H40.013 Open angle with borderline findings, low risk, bilateral; Z83.511 Family history of glaucoma; G44.009 Cluster headache syndrome, unspecified, not intractable; Z79.899 Other long term (current) drug therapy
CPT/HCPCS: 37609; 88305

== ENCOUNTER → 2021-03-05 08:49 | Outpatient (BNVA) | payer OTHER, SELFPAY | PROVIDERS: PCP Internal Medicine; Visit Provider Student in an Organized Health Care Education/Training Program ==

== ENCOUNTER 2022-01-21 07:25 | Outpatient (REF) | payer OTHER, SELFPAY ==
[2022-01-21 07:38] LABS: MANUAL DIFF FLAG NO
[2022-01-21 08:17] LABS: Appearance Urine CLEAR; Color Urine YELLOW; Glucose Urine UA NEG (NEG); Leukocyte Esterase Urine NEG (NEG); Nitrite Urine NEG (NEG); Specific Gravity - Urine >= 1.030 (1.005-1.025); Urine Blood NEG (NEG); Urine Ketones NEG (NEG); Urine Protein NEG (NEG-TRACE)
[2022-01-21 08:19] LABS: Basophils Percent Auto 0.6 % (0-2); Eosinophils Absolute Auto 0.1 X10*3/uL (0.0-0.4); Eosinophils Percent Auto 1.9 % (0-4); Hematocrit 46.5 % (42.0-52.0); Imm Gran Abs Auto 0.01 X10*3/uL (0.00-0.03); Imm Gran Pct Auto 0.2 % (0.0-0.4); Lymphocytes Absolute Auto 1.3 X10*3/uL (1.2-4.9); Lymphocytes Percent Auto 26.9 % (20-40); Mean Corpuscular HGB Conc 32.3 g/dl (31.0-36.0); Mean Corpuscular Hemoglobin 28.5 pg (27.0-33.0); Mean Corpuscular Volume 88.2 fL (80.0-98.0); Mean Platelet Volume 9.2 fL (9.4-12.4); Monocytes Absolute Auto 0.4 X10*3/uL (0.1-1.2); Monocytes Percent Auto 8.8 % (2-11); Neutrophils Absolute Auto 2.9 x10*3/uL (2.0-8.3); Neutrophils Percent Auto 61.6 % (45-73); Platelet Count 258 X10*3/uL (160-400); Red Blood Count 5.27 X10*6/uL (4.60-5.80); Red Cell Distribution Width 12.6 % (11.0-16.0); White Blood Count 4.7 X10*3/uL (4.8-10.8)
[2022-01-21 08:42] LABS: Alanine Aminotransferase 12 U/L (0-40); Albumin Level 4.1 g/dL (3.5-5.0); Alkaline Phosphatase 72 U/L (39-117); Anion Gap 10 (12-20); Aspartate Amino Transferase 15 U/L (5-37); Bilirubin Total 1.4 mg/dL (0.0-1.0); Blood Urea Nitrogen 16 mg/dL (9-16); Calcium 9.4 mg/dL (8.4-10.2); Carbon Dioxide 28 mmol/L (22-29); Chloride 106 mmol/L (96-108); Cholesterol 166 mg/dL; Estimated Glomerular Filt Rate 55; Glucose Fasting 84 mg/dL (60-99); HDL Cholesterol 42 mg/dL; LDL Cholesterol Calculated 113 mg/dl; Potassium 4.3 mmol/L (3.3-5.1); Sodium 140 mmol/L (135-145); Total Protein 6.6 g/dL (6.5-8.0); Triglycerides 59 mg/dL
[2022-01-21 09:05] LABS: Prostate Specific Antigen Scr 1.56 ng/mL (<0.05-4.0); TSH reflex Free T4 0.53 uIU/mL (0.32-4.0); Vitamin D 25-OH Total 15.8 ng/mL (>30)
== END 2022-01-21 07:26 | disposition home or self-care (01) ==
LOC: HO.LAB 07:25
PROVIDERS: PCP Internal Medicine; Visit Provider Internal Medicine
DX: Z00.00 Encounter for general adult medical examination without abnormal findings (principal); Z12.5 Encounter for screening for malignant neoplasm of prostate
CPT/HCPCS: 36415; 80053; 80061; 81003; 82306; 84153; 84443; 85025

== ENCOUNTER 2022-02-23 13:50 | Outpatient (REF) | payer OTHER, SELFPAY ==
[2022-02-25 13:07] LABS: Gliadin Deamidated IgA Ab 4.8 U/mL; Gliadin Deamidated IgG Ab 6.2 U/mL; Transglutaminase Ab IgG <1.0 U/mL; Transglutaminase IgA <1.0 U/mL
[2022-02-25 14:51] LABS: Immunoglobulin A 167 mg/dL (47-310)
[2022-02-28 21:01] LABS: Endomysial IgA Antibody Negative (Negative)
== END 2022-02-23 13:51 | disposition home or self-care (01) ==
LOC: HO.LAB 13:50
PROVIDERS: PCP Internal Medicine; Visit Provider Internal Medicine
DX: K58.9 Irritable bowel syndrome, unspecified (principal); R19.8 Other specified symptoms and signs involving the digestive system and abdomen
CPT/HCPCS: 36415; 82784; 86231; 86258; 86364

== ENCOUNTER 2022-04-02 06:58 | Day surgery (SDC) | payer OTHER, SELFPAY ==
[2022-03-29 10:33] VITALS: BMI 29.8
--- NOTE | 2022-04-01 09:42 | P.CONAN_ITS ---
Documented by User: Pam Cortez NP 04/01/22 09:42 HPI - Anesthesia Eval Consult details Narrative: 51yo M for Colonoscopy PMFSH Active Problems Active Problems: All Active Problems (Updated 01/21/22 @ 05:28 by Robson Mccoy MD) Migraine (Acute) Frequent headaches (Acute) Polyarthralgia (Acute) Diarrhea (Acute) Annual physical exam (Acute) Frequent loose stools (Acute) Obesity (BMI 30-39.9) (Acute) Genital herpes (Acute) GERD (gastroesophageal reflux disease) (Acute) Erectile dysfunction (Acute) Cluster headache syndrome (Acute) Past Medical History Medical History (Updated 01/21/22 @ 05:28 by Robson Mccoy MD) Cluster headache syndrome Erectile dysfunction Genital herpes GERD (gastroesophageal reflux disease) Obesity (BMI 30-39.9) Family History Family History Father Diabetes Mother History of breast cancer Hypertension Surgical History Surgical History (Updated 03/29/22 @ 10:29 by Ciara Beckman RN) History of esophagogastroduodenoscopy (EGD) History of temporal artery biopsy Hx of colonoscopy Social History Social History Household Members: Family Household Members Other:: Mother Housing: House Do you presently have visiting nurse or other home services: No Alcohol intake: current Alcohol intake frequency: a few times a week Alcohol type: beer Patient Tobacco Use Status: Never used Tobacco Tobacco use type: Cigar Use of substances other than those prescribed or required for medical reasons: Yes Substance Use Type: Marijuana Are you DNR?: No Advance Directives: Yes Advance Directives on File: Yes Advance Directives Date on File: 12/22/20 Recently lost weight without trying: No Nutrition Risks: No Nutritional Risk service: No Current occupational status: employed Meds Allergies Allergy/AdvReac Type Severity Reaction Status Date / Time No Known Allergies Allergy Verified 01/20/22 14:05 Home Medications Medication Instructions Recorded Confirmed Last Taken Type sumatriptan succinate 6 mg/0.5 mL 6 mg SUBCUT ONCE PRN 12/22/20 03/29/22 12/22/20 History subcutaneous pen injector verapamil 360 mg 24 hr 360 mg PO DAILY cap 03/05/21 03/29/22 Unknown History capsule,extended release Exam Exam Date and Time: April 01, 2022 0942 Height,Weight and Vital Signs: Height 6 ft Weight 99.79 kg Assessment and Plan Assessment Anesthesia Assessment: Chart Reviewed Documented by User: Yanni Vuong MD 04/02/22 08:12 [facility] Past Medical History Medical History (Updated 01/21/22 @ 05:28 by Robson Mccoy MD) Cluster headache syndrome Erectile dysfunction Genital herpes GERD (gastroesophageal reflux disease) Obesity (BMI 30-39.9) Family History Family History Father Diabetes Mother History of breast cancer Hypertension Family history of problems with anesthesia: No Surgical History Surgical History (Updated 03/29/22 @ 10:29 by Ciara Beckman RN) History of esophagogastroduodenoscopy (EGD) History of temporal artery biopsy Hx of colonoscopy History of Problems with Anesthesia: No Social History Social History Household Members: Family Household Members Other:: Mother Housing: House Do you presently have visiting nurse or other home services: No Alcohol intake: current Alcohol intake frequency: a few times a week Alcohol type: beer Patient Tobacco Use Status: Never used Tobacco Tobacco use type: Cigar Use of substances other than those prescribed or required for medical reasons: Yes Substance Use Type: Marijuana Are you DNR?: No Advance Directives: Yes Advance Directives on File: Yes Advance Directives Date on File: 12/22/20 Recently lost weight without trying: No Nutrition Risks: No Nutritional Risk service: No Current occupational status: employed Meds Allergies Allergy/AdvReac Type Severity Reaction Status Date / Time No Known Allergies Allergy Verified 01/20/22 14:05 Home Medications Medication Instructions Recorded Confirmed Last Taken Type sumatriptan succinate 6 mg/0.5 mL 6 mg SUBCUT ONCE PRN 12/22/20 03/29/22 12/22/20 History subcutaneous pen injector verapamil 360 mg 24 hr 360 mg PO DAILY cap 03/05/21 03/29/22 Unknown History capsule,extended release Exam Airway Mallampati Class: I TM Dist: >3cm Neck ROM: Full Assessment and Plan Assessment Anesthesia Assessment: Anesthesia Plan Discussed Final Anesthetic Review Family History of Problems with Anesthesia: No History of Problems with Anesthesia: No NPO: Yes ASA Class: II Final Preanesthetic Review: No Changes in Pt Med Stat, Meds/Allgs Chart Reviewed, Consent Obtained/Reviewed and Anes Risks/Benef Reviewed Patient Risk: Low Procedure Risk: Low Anesthetic Plan Anesthetic Plan: MAC: Disposition: Standard PACU
[2022-04-02 07:20] VITALS: BMI 29.7
[2022-04-02 07:55] VITALS: BP 129/81; PULSE 67; RESP 16; TEMP 36.6; O2SAT 97
[2022-04-02] MEDS: Lactated Ringers 1,000 ML 100 ML IVCONT (08:09)
[2022-04-02 09:22] VITALS: BP 88/53; PULSE 64; RESP 16; TEMP 37.3; O2SAT 97
--- NOTE | 2022-04-02 09:24 | PM.OP ---
Brief Operative Note Date of Service: 04/02/22 Pre-op diagnosis: Screening Post-op diagnosis: other (R/O microscopic colitis) Procedure: Colonoscopy to the cecum and TI with biopsies Surgeon: Alexis Concepcion Anesthesia: MAC Was an Application Architect Manager used for this Procedure?: No Estimated blood loss (mL): 2.0 Pathology: other (A. Ascending colon B. Descending colon) Condition: stable Disposition: PACU
[2022-04-02 09:37] VITALS: BP 92/55; PULSE 53; RESP 16; O2SAT 97
[2022-04-02 09:52] VITALS: BP 114/69; PULSE 60; RESP 16; O2SAT 99
[2022-04-02 09:59] VITALS: BP 124/83; PULSE 57; RESP 16; TEMP 36.9; O2SAT 98
--- NOTE | 2022-04-02 20:17 | OP_ITS ---
SURGEON: Alexis Concepcion MD INDICATIONS: The patient presents for evaluation of colorectal cancer screening and irregular bowel movements. Full consent was obtained from him for this, including risks of bleeding and perforation. PREOPERATIVE DIAGNOSIS: POSTOPERATIVE DIAGNOSIS: PROCEDURE PERFORMED: ESTIMATED BLOOD LOSS: COMPLICATIONS: ANESTHESIA: Monitored anesthesia care. ASSISTANTS: SPECIMENS: PROCEDURE: Colonoscopy to the cecum and terminal ileum with biopsies. PREOPERATIVE DIAGNOSES: Colorectal cancer screening, personal history of tubular adenoma of the colon, and irregular bowel movements. POSTOPERATIVE DIAGNOSES: Colorectal cancer screening, personal history of tubular adenoma of the colon, and irregular bowel movements. Rule out microscopic colitis, sigmoid diverticulosis, and internal hemorrhoids. DESCRIPTION OF PROCEDURE: The patient was placed in the left lateral decubitus position. The digital rectal exam revealed no abnormalities. The Olympus video pediatric colonoscope was entered into the rectum and advanced easily to the cecum. Once in the cecum, I did identify normal-appearing cecal pouch with appendiceal orifice and a normal-appearing ileocecal valve. The terminal ileum was cannulated and appeared normal. Scope withdrawn back in the colon. The cecum was well visualized for the most part, other than some small areas of solid stool, which were irrigated and suctioned away as best as possible. The ileocecal valve appeared normal. The scope was then slowly withdrawn assessing all mucosal surfaces carefully. Preparation throughout the colon was somewhat limited due to the areas of liquid and solid stool. I did not visualize any sign of polyps, colitis, nor angiodysplasia. Random biopsies were obtained in the ascending and descending colon. There was a mild amount of sigmoid diverticulosis. In the rectum, scope was retroflexed visualizing some small internal hemorrhoids, but no other pathology. The rectal mucosa appeared normal. The scope was straightened and withdrawn back from the patient. He tolerated the procedure well and was returned to recovery area in stable condition. IMPRESSION: 1. Rule out microscopic colitis. 2. Sigmoid diverticulosis. 3. Internal hemorrhoids. 4. Somewhat limited bowel prep. PLAN: The results of biopsies will be checked. I would recommend a repeat colonoscopy in 3 years with a 2-day preparation to hopefully allow for a better clean out. He will see me again on a p.r.n. basis. MD JOE Baca/CEDRICL / [id number]
== END 2022-04-02 10:41 | disposition home or self-care (01) ==
PROVIDERS: PCP Internal Medicine; Visit Provider Internal Medicine
PROC: 0DJD8ZZ Inspection of Lower Intestinal Tract, Via Natural or Artificial Opening Endoscopic (ICD-10-PCS; CPT 45378; principal; 2022-04-02 08:20)
DX: Z12.11 Encounter for screening for malignant neoplasm of colon (principal); Z86.010 Personal history of colon polyps; K57.30 Diverticulosis of large intestine without perforation or abscess without bleeding; K64.8 Other hemorrhoids; K58.9 Irritable bowel syndrome, unspecified; K21.9 Gastro-esophageal reflux disease without esophagitis; G43.909 Migraine, unspecified, not intractable, without status migrainosus; Z79.899 Other long term (current) drug therapy
CPT/HCPCS: 45380; 88305

== ENCOUNTER 2023-01-18 14:06 | Outpatient (REF) | payer OTHER, SELFPAY ==
[2023-01-18 14:18] LABS: Appearance Urine Clear; Color Urine Yellow; Glucose Urine UA Negative (Negative); Leukocyte Esterase Urine Negative (Negative); Nitrite Urine Negative (Negative); Specific Gravity - Urine >= 1.030 (1.005-1.025); Urine Blood Negative (Negative); Urine Ketones Trace mg/dL (Negative); Urine Protein Negative (Neg-Trace)
[2023-01-18 18:44] LABS: CT PCR NOT DETECTED (Not Detect.); NG PCR NOT DETECTED (Not Detect.)
== END 2023-01-18 14:07 | disposition home or self-care (01) ==
LOC: HO.LNP 14:06
PROVIDERS: Visit Provider Nurse Practitioner Family
DX: R30.0 Dysuria (principal); Z20.2 Contact with and (suspected) exposure to infections with a predominantly sexual mode of transmission
CPT/HCPCS: 0353U; 81003

== ENCOUNTER 2024-06-19 13:49 | Outpatient (AMB) | payer OTHER, SELFPAY ==
--- NOTE | 2024-06-19 13:52 | MHC.OFFWIV ---
Intake Vital Signs 06/19/24 13:53 Height 5 ft 11 in Weight 226 lb BMI 31.5 BP 134/80 Blood Pressure Location Rt brachial Pulse 68 Pulse Source Pulse Oximeter Temp Source Oral Pulse Oximetry (%) 99 Oxygen Delivery Method Room Air Intake Visit Reasons: EP diff urinating Intake Note: pt c/o difficulty urinating. Started 1 week ago Patient Tobacco Use Status: Current someday Tobacco user Allergies No Known Allergies Allergy (Verified 06/19/24 13:53) Do you need a note to return to daycare/school/sports/work: No HPI EP diff urinating HPI Details This note is constructed using voice recognition software. While every effort has been made to ensure accuracy, car dryer errors may have been included. The patient is a 51 year old male who presents to the clinic today with difficulty urinating. Patient reports recently being going to [place] and having ?too good of the time? since that time he has had some difficulty initiating and maintaining his stream. He is having a moderate amount of pain but not large amounts and rather intermittent. He has no burning, frequency, urgency. He does note that he may be at risk of an STI due to having unprotected sexual intercourse while he was in [place]. [facility] Medical History Cluster headache syndrome Erectile dysfunction Genital herpes GERD (gastroesophageal reflux disease) Obesity (BMI 30-39.9) Surgical History History of esophagogastroduodenoscopy (EGD) Hx of colonoscopy History of temporal artery biopsy Family History Father Diabetes Mother History of breast cancer Hypertension Social History (Updated 02/16/24 @ 12:09 by DUNCAN Gavin) Household Members: Family Household Members Other:: Mother Housing: House Do you presently have visiting nurse or other home services: No Alcohol intake: current Alcohol intake frequency: a few times a week Alcohol type: beer Patient Tobacco Use Status: Current someday Tobacco user Tobacco use type: Cigar e-Cigarette/Vaping Use: Never Used Second Hand Smoke Exposure: Yes Substance Use Type: Marijuana Advance Directives Date on File: 12/22/20 service: No Current occupational status: employed Cognitive needs: No Hearing needs: No Vision needs: Yes (Glasses) Review of Systems Const All systems reviewed & are unremarkable except as noted in HPI and below Physical Exam Vital Signs: Last Vital Signs Pulse 68 06/19/24 13:53 BP 134/80 06/19/24 13:53 Pulse Ox 99 06/19/24 13:53 Oxygen Delivery Method Room Air 06/19/24 13:53 BMI result Body Mass Index 31.5 Const General: cooperative, healthy appearing, comfortable, no acute distress and alert Orientation/consciousness: patient oriented x3 Limitations: no limitations Neck Neck: Yes normal visual inspection, Yes full ROM and Yes no lymphadenopathy Resp Effort & Inspection: normal respiratory effort and able to speak in complete sentences Auscultation: clear to auscultation bilaterally Cardio Jugular venous distension: no JVD Palpation: normal PMI Rate: regular rate Heart sounds: S1 normal heart sound present, S2 normal heart sound present, no click, no gallops, no murmurs and no rubs GI Inspection: Yes normal to inspection Palpation (GI): Soft to palpation and nontender Percussion: Yes normal to percussion Auscultation: normal bowel sounds Other: Patient declined exam. Skin General skin exam: no rashes or lesions noted, elasticity normal and turgor normal Neuro General: patient oriented x3 Extrem General: Yes normal to inspection, Yes full ROM, Yes capillary refill normal and Yes normal exam except as noted Psych Appearance: grossly normal Mental Status: mental status grossly normal Speech and movement: Normal speech and movement present Affect: normal affect Results AMB Urinalysis, Automated UA Leukoctes 0 Pepe/uL Last Edit by Regis Cardenas CMA on 06/19/24 14:07 UA Nitrite Negative Last Edit by Regis Cardenas CMA on 06/19/24 14:07 UA Urobilinogen 0.2 mg/dL Last Edit by Regis Cardenas CMA on 06/19/24 14:07 UA Protein 0 mg/dL Last Edit by Regis Cardenas CMA on 06/19/24 14:07 UA pH 6.0 Last Edit by Regis Cardensa CMA on 06/19/24 14:07 UA Blood 0 Sukumar/uL Last Edit by Regis Cardenas CMA on 06/19/24 14:07 UA Specific [place] 1.020 Last Edit by Regis Cardenas CMA on 06/19/24 14:07 UA Ketone Negative Last Edit by Regis Cardenas CMA on 06/19/24 14:07 UA Bilirubin 0 mg/dL Last Edit by Regis Cardenas CMA on 06/19/24 14:07 UA Glucose 0 mg/dL Last Edit by Regis Cardenas CMA on 06/19/24 14:07 Results Reviewed Results Reviewed: Laboratory Last Values Urine pH (Auto) 6.0 06/19/24 14:06 Specific [place] (Auto) 1.020 06/19/24 14:06 Urine Protein (Auto) 0 mg/dL 06/19/24 14:06 Glucose (UA)(Auto) 0 mg/dL 06/19/24 14:06 Urine Ketones (Auto) Negative 06/19/24 14:06 Urine Blood (Auto) 0 Sukumar/uL 06/19/24 14:06 Urine Nitrite (Auto) Negative 06/19/24 14:06 Urine Bilirubin (Auto) 0 mg/dL 06/19/24 14:06 Urine Urobilinogen (Auto) 0.2 mg/dL 06/19/24 14:06 Leukocyte Esterase (Auto) 0 Pepe/uL 06/19/24 14:06 Assessment & Plan Assessment & Plan (1) Dysuria: Code(s): R30.0 - Dysuria Plan: In office rapid urine appears negative for infection, symptoms not consistent with UTI. Discussed consideration of prostate exam, which patient deferred at this time. Did obtain urine for chlamydia and gonorrhea, which we would treat accordingly if if present. Advised patient to increase hydration and follow up with primary care provider should symptoms worsen. Plan See above for full details and plan. Orders: Orders AMB Urinalysis Automated Today Z13.9 - Encounter for screening, unspecified CT NG by PCR Today R30.0 - Dysuria Coding Level of Care Code Est Pt Level 3 (01370) Diagnoses Dysuria R30.0
[2024-06-19 13:53] VITALS: BP 134/80; PULSE 68; O2SAT 99; BMI 31.5
== END 2024-06-19 14:40 | disposition home or self-care (01) ==
PROVIDERS: PCP Internal Medicine; Visit Provider Registered Nurse
DX: R30.0 Dysuria (principal); Z13.9 Encounter for screening, unspecified
CPT/HCPCS: 81003; 99213

== ENCOUNTER 2024-06-19 14:17 | Outpatient (REF) | payer OTHER, SELFPAY ==
[2024-06-19 18:36] LABS: CT PCR NOT DETECTED (Not Detect.); NG PCR NOT DETECTED (Not Detect.)
== END 2024-06-19 14:18 | disposition home or self-care (01) ==
LOC: HO.LNP 14:17
PROVIDERS: Visit Provider Registered Nurse
DX: R30.0 Dysuria (principal)
CPT/HCPCS: 87491; 87591

== ENCOUNTER 2024-08-17 09:26 | Outpatient (REF) | payer OTHER, SELFPAY ==
[2024-08-17 13:20] LABS: MANUAL DIFF FLAG NO
[2024-08-17 13:42] LABS: Basophils Percent Auto 0.4 % (0-2); Eosinophils Absolute Auto 0.1 X10*3/uL (0.0-0.4); Eosinophils Percent Auto 1.9 % (0-4); Hematocrit 44.7 % (42.0-52.0); Hemoglobin 14.5 g/dl (14.0-18.0); Imm Gran Abs Auto 0.01 X10*3/uL (0.00-0.03); Imm Gran Pct Auto 0.2 % (0.0-0.4); Lymphocytes Absolute Auto 1.2 X10*3/uL (1.2-4.9); Lymphocytes Percent Auto 26.6 % (20-40); Mean Corpuscular HGB Conc 32.4 g/dl (31.0-36.0); Mean Corpuscular Hemoglobin 28.2 pg (27.0-33.0); Mean Platelet Volume 10.3 fL (9.4-12.4); Monocytes Absolute Auto 0.5 X10*3/uL (0.1-1.2); Monocytes Percent Auto 10.2 % (2-11); Neutrophils Absolute Auto 2.8 x10*3/uL (2.0-8.3); Neutrophils Percent Auto 60.7 % (45-73); Platelet Count 245 X10*3/uL (160-400); Red Blood Count 5.14 X10*6/uL (4.60-5.80); Red Cell Distribution Width 13.2 % (11.0-16.0); White Blood Count 4.6 X10*3/uL (4.8-10.8)
[2024-08-17 13:48] LABS: Appearance Urine Clear; Color Urine Yellow; Glucose Urine UA Negative (Negative); Leukocyte Esterase Urine Negative (Negative); Nitrite Urine Negative (Negative); PH 5.5 (5.0-9.0); Specific Gravity - Urine 1.015 (1.005-1.025); Urine Blood Negative (Negative); Urine Ketones Negative (Negative); Urine Protein Negative (Neg-Trace)
[2024-08-17 14:00] LABS: Alanine Aminotransferase 10 U/L (0-40); Albumin Level 4.1 g/dL (3.5-5.0); Alkaline Phosphatase 68 U/L (39-117); Anion Gap 11 (12-20); Aspartate Amino Transferase 14 U/L (5-37); Bilirubin Total 0.7 mg/dL (0.0-1.0); Blood Urea Nitrogen 14 mg/dL (9-16); Carbon Dioxide 24 mmol/L (22-29); Chloride 108 mmol/L (96-108); Cholesterol 179 mg/dL (<200); Estimated Glomerular Filt Rate > 60; Glucose Fasting 90 mg/dL (60-99); HDL Cholesterol 51 mg/dL (>40); LDL Cholesterol Calculated 110 mg/dL (<100); Potassium 3.8 mmol/L (3.3-5.1); Sodium 139 mmol/L (135-145); Total Protein 6.8 g/dL (6.5-8.0); Triglycerides 94 mg/dL (<150)
[2024-08-17 14:19] LABS: TSH reflex Free T4 0.75 uIU/mL (0.32-4.0); Vitamin D 25-OH Total 31.6 ng/mL (>30)
== END 2024-08-17 09:27 | disposition home or self-care (01) ==
LOC: HO.HMGCLDS 09:26
PROVIDERS: PCP Internal Medicine; Visit Provider Internal Medicine
DX: Z00.00 Encounter for general adult medical examination without abnormal findings (principal); E78.00 Pure hypercholesterolemia, unspecified; D64.9 Anemia, unspecified; R30.0 Dysuria; E55.9 Vitamin D deficiency, unspecified; Z12.5 Encounter for screening for malignant neoplasm of prostate
CPT/HCPCS: 36415; 80053; 80061; 81003; 82306; 84153; 84443; 85025

== ENCOUNTER 2024-08-21 10:27 | Outpatient (AMB) | payer OTHER, SELFPAY ==
--- NOTE | 2024-08-21 10:32 | A.OFFPC_ITS ---
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 Operator Required: No Accompanied by: Self / Same As Patient Allergies No Known Allergies Allergy (Verified 08/21/24 11:01) Medication List - Last Reconciled 08/21/24 by Robson Mccoy MD brimonidine 0.2% 1 drp ophthalmic (eye) BID galcanezumab-gnlm (Emgality) 120 mg subcut .Q month sumatriptan succinate 6 mg (0.5 mL) subcut ONCE PRN 30 days tadalafil 20 mg PO DAILY PRN valacyclovir 1,000 mg PO DAILY Tobacco use date assessed: 08/21/24 Dental Screening Dental Screen Date: 08/21/24 Did you have a dental visit in the last 12 months?: Yes Did you have a dental problem in the last 6 months where you did not have access to dental care?: No Was dental information given to patient?: Patient has dentist HPI Annual Exam HPI Details Patient comes in today for his annual physical examination States that he feels okay He denies any headaches or dizziness - states that his migraine headaches have been well-controlled on Emgality He denies any chest pains, no SOB No nausea/vomiting, no abdominal pain No change in bowel habits noted He denies any acute urinary symptoms Need his Valacyclovir Rx refilled He had his follow up labs done a few days ago - to discuss his results He is up-to-date with his colon cancer screening - will be due for repeat colonoscopy next year (2024) He would also like to get his flu vaccine today [facility] Medical History (Updated 08/21/24 @ 12:27 by Robson Mccoy MD) Ischemic optic neuropathy of left eye Obesity (BMI 30-39.9) Genital herpes GERD (gastroesophageal reflux disease) Erectile dysfunction Cluster headache syndrome Surgical History History of esophagogastroduodenoscopy (EGD) Hx of colonoscopy History of temporal artery biopsy Family History Father Diabetes Mother History of breast cancer Hypertension Social History Household Members: Family Household Members Other:: Mother Housing: House Do you presently have visiting nurse or other home services: No Alcohol intake: current Alcohol intake frequency: a few times a week Alcohol type: beer Patient Tobacco Use Status: Current someday Tobacco user Tobacco use type: Cigar e-Cigarette/Vaping Use: Never Used Second Hand Smoke Exposure: Yes Substance Use Type: Marijuana Advance Directives Date on File: 12/22/20 service: No Current occupational status: employed Cognitive needs: No Hearing needs: No Vision needs: Yes (Glasses) Questionnaire PHQ-9 Over the last 2 weeks, how often have you been bothered by any of the following problems? 1. Little interest or pleasure in doing things: not at all 2. Feeling down, depressed, or hopeless: not at all 3. Trouble falling or staying asleep, or sleeping too much: not at all 4. Feeling tired or having little energy: not at all 5. Poor appetite or overeating: not at all 6. Feeling bad about yourself - or that you are a failure or have let yourself or your family down: not at all 7. Trouble concentrating on things, such as reading the newspaper or watching television: not at all 8. Moving or speaking so slowly that other people could have noticed. Or the opposite - being so fidgety or restless that you have been moving around a lot more than usual: not at all 9. Thoughts that you would be better off or of hurting yourself in some way: not at all Total score: 0 Depression Screening Interpretation: Negative Depression Screening Done: Yes 59186 - PHQ-9 Billing: Yes Source: Developed by Drs. Alexis Marina, Noemi Miranda, Eliazar Sheehan and colleagues, with an educational hanny from [employer]. Thrive Questionnaire Date Thrive assessed: 08/21/24 I am a: Patient What is your living situation today?: I have a steady place to live Within the past 12 months, did the food you bought not last and you didn't have the money to get more?: Never true Within the past 12 months, did you worry whether your food would run out before you got money to buy more?: Never true Do you have trouble paying for medicines?: No Do you have trouble getting transportation to medical appointments?: No Do you have trouble paying your heating and electricity bill?: No Do you have trouble taking care of your child, family member or friend?: No Do you have trouble with day-to-day activities such as bathing, preparing meals, shopping, managing finances, etc.?: No Are you currently unemployed and looking for a job?: No Are you interested in more education?: No Please select the resources that you would like help with: None Currently or been in a relationship where the following occur: No concerns reported THRIVE Score: 0 AUDIT C Alcohol Use Questionnaire (AUDIT-C) 1. How often do you have a drink containing alcohol?: 2-4 times a month 2. How many drinks containing alcohol do you have on a typical day when you are drinking?: 1 or 2 3. How often do you have six or more drinks on one occasion?: Never Total Score: 2 Score Reviewed/Action Taken: Yes HENRY-7 AMB Questionnaire HENRY-7 Date HENRY - 7 assessed: 08/21/24 Feeling nervous, anxious, or on edge: 0 = Not at all Not being able to stop or control worryin = Not at all Worrying too much about different things: 0 = Not at all Trouble relaxin = Not at all Being so restless that it is hard to sit still: 0 = Not at all Becoming easily annoyed or irritable: 2 = More than half the days Feeling afraid as if something awful might happen: 0 = Not at all Total HENRY-7 score (0-4 normal; 5-9 mild; 10-14 moderate; 15-21 severe): 2 Source: Developed by Drs. Alexis Marina, Noemi Miranda, Eliazar Sheehan and colleagues, with an educational hanny from [employer]. Review of Systems Const Denies chills, Denies fatigue, Denies fever(s), Denies headache(s), Denies malaise and Denies weakness Eyes Denies blurry vision, Denies change in vision, Denies irritation and Denies itchy eyes ENT Denies dysphagia, Denies dizziness, Denies otalgia, Denies headache(s), Denies nasal congestion, Denies neck pain, Denies odynophagia and Denies sore throat Card Denies chest pain, Denies rapid heart rate, Denies irregular heart rhythm, Denies palpitations and Denies dyspnea Resp Denies chest congestion, Denies cough, Denies dyspnea and Denies wheezing GI Denies abdominal pain, Denies bloating, Denies constipation, Denies dysphagia, Denies heartburn, Denies diarrhea, Denies nausea, Denies odynophagia and Denies vomiting Denies hematuria, Denies difficulty urinating, Denies dysuria, Denies urinary frequency and Denies urinary urgency Musc Denies back pain, Denies arthralgias, Denies joint swelling, Denies muscle weakness and Denies neck pain Skin/Breast Denies change in pigmentation, Denies lesions, Denies rash and Denies unusual bruising Neuro Denies dizziness, Denies headache(s), Denies paresthesias and Denies weakness Endo Denies fatigue and Denies palpitations Aller/Immun Denies itchy eyes and Denies wheezing Physical exam (Primary Care) Vital Signs: Last Vital Signs Pulse 75 08/21/24 10:33 BP 116/78 08/21/24 10:33 Pulse Ox 98 08/21/24 10:33 Oxygen Delivery Method Room Air 08/21/24 10:33 BMI result Body Mass Index 31.7 Tobacco/Smoking Status: Tobacco use Status Tobacco use date assessed 08/21/24 08/21/24 10:37 Patient Tobacco Use Status Current someday Tobacco 08/21/24 10:37 Tobacco use type Cigar 08/21/24 10:37 e-Cigarette/Vaping Use Never Used 08/21/24 10:37 PHQ-9: PHQ-9 Score PHQ-9: Total score 0 08/21/24 11:01 Depression Screening Interpretation: Negative Thrive Assessment: Date of Thrive Assessment Date Thrive assessed 08/21/24 08/21/24 10:37 Currently or been in a relationship where the following occur: No concerns reported Const General: no acute distress, alert and awake Orientation/consciousness: patient oriented x3 HENMT Head: Yes normocephalic and Yes atraumatic Ears: external ears normal, TM's normal bilaterally and EAC's normal General nose exam: No nasal discharge present Face and sinus: Yes normal facial exam and Yes sinuses nontender Teeth and gingiva: dentition normal Throat: Yes posterior oropharynx normal and Yes tonsils normal (no TP congestion) Eyes Eyelids: Yes eyelids normal Conjunctivae: conjunctivae normal Pupils: Equal, round and reactive pupils present EOM: EOMs intact bilaterally Neck Neck: Yes no lymphadenopathy and Yes supple Thyroid: Thyroid normal Resp Auscultation: clear to auscultation bilaterally, no rales and no wheezes Cardio Rate: regular rate Rhythm: regular rhythm Heart sounds: no murmurs GI Palpation (GI): Soft to palpation, nontender and No hepatosplenomegaly present Auscultation: normal bowel sounds General: Yes no CVA tenderness Back/Spine/Pelvis Back: no CVA tenderness Thoracic/Lumbar Spine: thoracic and lumbar spine normal to inspection Skin Lesions: no lesions Rashes: no rashes Neuro General: patient oriented x3, moves all extremities, no focal motor deficits and CN's II-XI intact bilaterally Cranial nerves: Yes Equal, round and reactive pupils present Cognition (Neuro): normal cognition Gait exam (Neuro): Normal gait present Extrem General: Yes no clubbing, cyanosis or edema Office Procedures Flu Questionnaire Does the patient have a severe egg allergy?: No Immunizations Fluarix Triv 5177-2474 (PF) 45 mcg (15 mcg x 3)/0.5 mL IM syringe Performing Provider: Robson Mccoy MD [facility] Administered by: DUNCAN Luke on 08/21/24 10:44 Dose Route Admin Location Dispensed Lot Number Expiration Date [facility] Mandarin Chinese Teacher 0.5 mL IM Left Deltoid 0.5 mL [id number] 05/20/25 [id number] MiNeeds VIS Given Date VIS Provided VIS Publication Date 08/21/24 Single Vaccine 21 Eligibility Eligibility Date Funding Source Not [facility] Eligible 08/21/24 Private Results Reviewed Results Reviewed: Laboratory Tests 08/17/24 09:34 WBC 4.6 L Hgb 14.5 Hct 44.7 Plt Count 245 Sodium 139 Potassium 3.8 Creatinine 1.05 Estimated GFR > 60 Fasting Glucose 90 Calcium 9.0 AST 14 ALT 10 Triglycerides 94 Cholesterol 179 LDL Cholesterol, Calc 110 H HDL Cholesterol 51 PSA Screen 1.90 25-OH Vitamin D Total 31.6 TSH 0.75 Ur Specific [place] 1.015 Urine Protein Negative Urine Glucose (UA) Negative Urine Blood Negative Urine Nitrite Negative Ur Leukocyte Esterase Negative Coding Level of Care Code Est Pt Prev Care 40-64y(11409) Diagnoses Annual physical exam Z00.00 Chronic cluster headache, not intractable G44.029 Headache chronicity pattern: chronic headache Intractability: not intractable Gastroesophageal reflux disease without esophagitis K21.9 Esophagitis presence: without esophagitis Erectile dysfunction, unspecified erectile dysfunction type N52.9 Erectile dysfunction type: unspecified Genital herpes simplex, unspecified site A60.00 Herpes simplex infection site: unspecified Obesity (BMI 30-39.9) E66.9 Assessment & Plan Assessment & Plan (1) Annual physical exam: Code(s): Z00.00 - Encounter for general adult medical examination without abnormal findings Category: Medical Plan: Results of his labs done a few days ago reviewed and discussed with patient He is up-to-date with his cancer screenings but will need repeat colonoscopy next year (2024) (2) Cluster headache syndrome: Comment: S/P temporal artery biopsy in 01/2021 - negative for giant cell arteritis Code(s): G44.009 - Cluster headache syndrome, unspecified, not intractable Category: Medical Qualifiers: Headache chronicity pattern: chronic headache Intractability: not intractable Qualified Code(s): G44.029 - Chronic cluster headache, not intractable Plan: States that his headaches are currently well-controlled on his current Rx Continue Emgality 120 mg SQ once a month Conitnue Sumatriptan 6 mg injection SQ BID PRN for acute headaches/symptoms Follow up with neurology (Dr. Amin) as scheduled (3) GERD (gastroesophageal reflux disease): Code(s): K21.9 - Gastro-esophageal reflux disease without esophagitis Category: Medical Qualifiers: Esophagitis presence: without esophagitis Qualified Code(s): K21.9 - Gastro-esophageal reflux disease without esophagitis Plan: Dietary restrictions reinforced (4) Erectile dysfunction: Code(s): N52.9 - Male erectile dysfunction, unspecified Category: Medical Qualifiers: Erectile dysfunction type: unspecified Qualified Code(s): N52.9 - Male erectile dysfunction, unspecified Plan: Continue Tadalafil 20 mg QD PRN (5) Genital herpes: Code(s): A60.00 - Herpesviral infection of urogenital system, unspecified Category: Medical Qualifiers: Herpes simplex infection site: unspecified Qualified Code(s): A60.00 - Herpesviral infection of urogenital system, unspecified Plan: Continue Valacyclovir 1000 mg QD - Rx refilled (6) Obesity (BMI 30-39.9): Code(s): E66.9 - Obesity, unspecified Category: Medical Plan: Reinforced diet/exercise as tolerated/lose weight Plan Flu vaccine given today To return in 1 year for his next annual physical examination Will also recheck his labs in 1 year Orders: Orders TSH reflex Free T4 1 Year E78.00 - Pure hypercholesterolemia, unspecified, Z00.00 - Encounter for general adult medical examination without abnormal findings UA CC w/rflx Micro + Cult 1 Year R30.0 - Dysuria, Z00.00 - Encounter for general adult medical examination without abnormal findings Prostate Specific Antigen Scr 1 Year Z00.00 - Encounter for general adult medical examination without abnormal findings Influenza [id number] Immunization Today Z23 - Encounter for immunization Complete Blood Count Auto Diff 1 Year D64.9 - Anemia, unspecified, Z00.00 - Encounter for general adult medical examination without abnormal findings Comprehensive [place]. Panel Fast 1 Year E78.00 - Pure hypercholesterolemia, unspecified, Z00.00 - Encounter for general adult medical examination without abnormal findings Lipid Panel 1 Year E78.00 - Pure hypercholesterolemia, unspecified, Z00.00 - Encounter for general adult medical examination without abnormal findings Vitamin D 25-OH Total 1 Year E55.9 - Vitamin D deficiency, unspecified, Z00.00 - Encounter for general adult medical examination without abnormal findings Medications: Refilled valacyclovir 1,000 mg PO DAILY 90 tabs 1RF
[2024-08-21 10:33] VITALS: BP 116/78; PULSE 75; O2SAT 98; BMI 31.7
== END 2024-08-21 11:14 | disposition home or self-care (01) ==
PROVIDERS: PCP Internal Medicine; Visit Provider Internal Medicine
DX: Z00.00 Encounter for general adult medical examination without abnormal findings (principal); G44.029 Chronic cluster headache, not intractable; Z68.31 Body mass index [BMI] 31.0-31.9, adult; E66.9 Obesity, unspecified; K21.9 Gastro-esophageal reflux disease without esophagitis; N52.9 Male erectile dysfunction, unspecified; A60.00 Herpesviral infection of urogenital system, unspecified; Z23 Encounter for immunization

== ENCOUNTER → 2024-08-21 10:27 | Outpatient (BNVA) | payer OTHER, SELFPAY | PROVIDERS: PCP Internal Medicine; Visit Provider Internal Medicine | DX: Z00.00 Encounter for general adult medical examination without abnormal findings (principal); G44.029 Chronic cluster headache, not intractable; K21.9 Gastro-esophageal reflux disease without esophagitis; N52.9 Male erectile dysfunction, unspecified; A60.00 Herpesviral infection of urogenital system, unspecified; E66.9 Obesity, unspecified; Z68.31 Body mass index [BMI] 31.0-31.9, adult; Z79.899 Other long term (current) drug therapy; Z23 Encounter for immunization | CPT/HCPCS: 90471; 90656; 96127 ==

== ENCOUNTER 2025-06-20 13:10 | Outpatient (AMB) | payer OTHER, SELFPAY ==
--- NOTE | 2025-06-20 13:12 | MHC.OFFVIS ---
Vital Signs 06/20/25 13:13 Height 5 ft 11 in Intake Visit Reasons: f/u Allergies No Known Allergies Allergy (Verified 06/20/25 13:18) Medication List - Last Reconciled 06/20/25 by Carmelita Tanner CNP brimonidine 0.2% 1 drp ophthalmic (eye) BID galcanezumab-gnlm (Emgality) 120 mg subcut .Q month sumatriptan succinate 6 mg (0.5 mL) subcut ONCE PRN 30 days sumatriptan succinate take 1 tab at onset of headache; if no relief, may repeat 1 tab after at least 2 hrs; max = 2 tabs/24 hrs PO tadalafil 20 mg PO DAILY PRN valacyclovir 1,000 mg PO DAILY HPI Comments Details: 54-year-old man with cluster headaches and migraine. He was doing okay. Headaches were great with Emgality. He would get some mild headaches a few days before next dose was due. He has not had to use sumatriptan recently. [facility] Medical History (Updated 06/14/25 @ 10:44 by Chadwick Short [facility]) Insomnia Muscle tension headache Ischemic optic neuropathy of left eye Obesity (BMI 30-39.9) Genital herpes GERD (gastroesophageal reflux disease) Erectile dysfunction Cluster headache syndrome Surgical History History of esophagogastroduodenoscopy (EGD) Hx of colonoscopy History of temporal artery biopsy Family History Father Diabetes Mother History of breast cancer Hypertension Social History Household Members: Family Household Members Other:: Mother Housing: House Do you presently have visiting nurse or other home services: No Alcohol intake: current Alcohol intake frequency: a few times a week Alcohol type: beer Patient Tobacco Use Status: Current someday Tobacco user Tobacco use type: Cigar e-Cigarette/Vaping Use: Never Used Second Hand Smoke Exposure: Yes Substance Use Type: Marijuana Advance Directives Date on File: 12/22/20 service: No Current occupational status: employed Cognitive needs: No Hearing needs: No Vision needs: Yes (Glasses) Review of Systems Const Denies chills, Denies daytime sleepiness, Denies difficulty sleeping, Denies fatigue, Denies fever(s), Denies frequent falls, Reports headache(s), Denies increased appetite, Denies poor appetite, Denies snoring, Denies weakness, Denies weight gain and Denies weight loss Eyes Denies loss of vision ENT Denies vertigo, Denies dizziness and Reports headache(s) Card Denies chest pain at rest, Denies chest pain with activity, Denies syncope, Denies leg edema and Denies palpitations Resp Denies snoring GI Denies constipation, Denies heartburn, Denies diarrhea and Denies nausea Denies urinary frequency, Denies urinary incontinence and Denies urinary urgency Musc Denies abnormal gait, Denies numbness and Denies tingling Skin/Breast Denies dry skin and Denies rash Neuro Denies abnormal gait, Denies vertigo, Denies dizziness, Denies syncope, Denies frequent falls, Reports headache(s), Denies lack of coordination, Denies loss of vision, Denies memory loss, Denies numbness, Denies restless legs, Denies seizure-like activity, Denies tingling, Denies paresthesias, Denies tremor(s) and Denies weakness Psych Denies anxiety, Denies depression, Denies auditory hallucinations, Denies memory loss, Denies visual hallucinations and Denies suicidal ideation Endo Denies fatigue and Denies palpitations Physical Exam Const Other: General Appearance:? normal, in no acute distress. Skin:? no rashes, no significant birthmarks. Heart:? S1, S2 normal, no murmurs. Lungs:? clear anteriorly and posteriorly. Extremities:? no edema. Psych:? alert, oriented, cognitive function intact, cooperative with exam. Neuro Other: Mental Status:?Normal attention, orientation, memory and affect.? Cranial Nerves:?Pupils are equal, round and reactive to light. External occular muscles are intact. Visual espinoza are full. Face is symmetrical. Facial sensations are normal. Tongue is midline. Palate elevates symmetrically. Shoulder shrugging is normal. Hearing to bedside conversation is normal. Coordination:?No ataxia,?no titubation.? Gait Exam: Within normal limits. Cerebellar Signs:?Jzldoa-ml-lqcx and ngpo-jf-qbkr is normal.? Extrapyramidal System:?No tremor, rigidity with normal facial expressions.? Pronator Drift:?Not present.? Involuntary Movements:?No tremors seen.? Speech:?Normal.? Results Reviewed Results Reviewed: [place] [facility] [place]: WNL Brain CT WO [place] [facility] [place] WNL MRI brain WO [place] [facility] [place] 2008[place] WNL MRA brain [place] [facility] [place]: WNL CT brain WO at [facility] [place] 2010: WNL CT brain WO at [facility] [place] 2013: WNL EMG/NCS RUE in May 2020 at [facility] [place]: mild right ulnar neuroapthy across CT Assessment & Plan Assessment & Plan (1) Cluster headache syndrome: Comment: S/P temporal artery biopsy in 01/2021 - negative for giant cell arteritis Code(s): G44.009 - Cluster headache syndrome, unspecified, not intractable Category: Medical Qualifiers: Headache chronicity pattern: chronic headache Intractability: not intractable Qualified Code(s): G44.029 - Chronic cluster headache, not intractable Plan: Continue Emgality Solution Prefilled Syringe 1mL subcutaneous monthly Continue sumatriptan 100mg 1 tablet as needed for headache Continue sumatriptan succinate solution auto-injector 6mg/0.5mL 1 pen subcutaneously daily as needed for headache #3 for 30 days (2) Migraine: Code(s): G43.909 - Migraine, unspecified, not intractable, without status migrainosus Category: Medical Qualifiers: Intractability: intractable Migraine type: without aura Status migrainosus presence: with status migrainosus Qualified Code(s): G43.011 - Migraine without aura, intractable, with status migrainosus Plan Meds tried: prednisone, verapamil, topiramate, sumatriptan, Fioricet Coding Level of Care Code Est Pt Level 3 (11397) Diagnoses Chronic cluster headache, not intractable G44.029 Headache chronicity pattern: chronic headache Intractability: not intractable Migraine G43.011 Intractability: intractable Migraine type: without aura Status migrainosus presence: with status migrainosus
--- OUTSIDE RECORDS SUMMARY | 2025-06-20 13:23 | XMS_ITS | Patient Health Record ---
Author Organization [facility] Address [address] [place] [address] Care Team Providers Care Caustic Preparer Name Role Phone Robert Abdul Primary Care Provider Reason For Referral No Information Plan Of Treatment No Information
--- OUTSIDE RECORDS SUMMARY | 2025-06-20 13:23 | XMS_ITS | Patient Health Record ---
Author Organization [facility] Address [address] [place] [address] Care Team Providers Care Mold Checker Name Role Phone Darius CLEARY, Robson Primary Care Provider Alexis Christensen Unavailable [phone] Allergies No Known Allergies Reason For Referral No Information Medications Medication SIG (Take, Route, Frequency, Duration) Notes Start Date End Date Status Dicyclomine HCl 10 MG 1 or 2 Orally Q 6 hours prn abdominal cramps/discomfort/bloa ting. You may also take it 30-60 minutes before a meal to prevent episodes of discomfort/cramps after eating for 30 day(s) 02/23/2022 Active Tadalafil 20 MG Oral for 6 For E.D. Act huey SUMAtriptan PRN Active Verapamil HCl ER 300 MG 1 tablet Orally Once a day Active Topamax Not-Taking Immunizations Vaccine Route Administration Date Status Comme nts Influenza Unknown 09/09/2021 Administered Social History Tobacco Use: Social History Observation Description Date Details (start date - stop date) Never Smoker NA - NA Tobacco Use/Smoking Question Answer Notes Patient is a nonsmoker Alcohol Screen Question Answer Notes Did you have a drink contain ing alcohol in the past year? Yes How often did you have a dri nk containing alcohol in the past year? 2 to 4 times a month (2 points) How many drinks did you have on a typical day when you were drinking in the past year? 1 or 2 drinks (0 point) How often did you have 6 or more drinks on one occasion in the past year? Never (0 point) Points 2 Interpretation Negative Section Notes: VERY OCCASIONAL CIGAR; NO SI G ALCOHOL VERY OCCASIONAL CIGAR; NO SI G ALCOHOL Problems Problem Type SNOMED Code ICD Code Onset Dates Problem Status W/U Status Risk Notes Problem 327601642 Encounter for screening for malignant neoplasm of colon (Z12.11) Active confirmed Problem 382885172 History of adenomatous polyp of colon (Z86.010) Active confirmed Problem 853193735 Change in bowel habits (R19.4) Active confirmed Problem 205772391 Gastroesophageal reflux disease, esophagitis presence not specified (K21.9) Active confirmed Problem 536723895 Irregular bowel habits (R19.8) Active confirmed Problem 93537113 Irritable bowel syndrome, unspecified type (K58.9) Active confirmed Problem Diverticulosis of colon (787996846) Diverticulosis of colon (K57.30) Active confirmed Problem 30310472 Spitting up bloo d (R04.2) Active confirmed Plan Of Treatment Pending Test Test Name Order Date CELIAC PANEL #10 02/23/2022 Pathology 04/02/2022 Future Test Test Name Order Date UPPER GI ENDOSCOPY 03/23/2018 COLONOSCOPY 03/23/2018 COLONOSCOPY 02/23/2022 Insurance Providers Payer Name Payer Address Payer Phone Subscriber Number Group Number Insured Name Patient Relationship to Insured Coverage Start Date Coverage End Date [facility] [employer] [address] [place] [address] [id number] SMILEY PASCAL Self - patient is the insured Medical (General) History Medical History History ICD Code Denies [place],DM,CVA,Lung disease,renal dise ase Migraines Temporal artery biopsy on the left-negat huey Irritable bowel syndrome Upper endoscopy 04/2018--normal except fo r a minimal hiatal hernia Colonoscopy 04/2018--small tu bular adenoma removed and a hyperplastic polyp removed; no inflammatory bowel disease and biopsies were negative for any definitive microscopic colitis Surgical History Surgery Date(Month/Year)
== END 2025-06-20 13:36 | disposition home or self-care (01) ==
LOC: HO.HSM 13:10
PROVIDERS: PCP Internal Medicine; Referring Provider Internal Medicine; Visit Provider Registered Nurse
DX: G44.029 Chronic cluster headache, not intractable (principal); G43.011 Migraine without aura, intractable, with status migrainosus
CPT/HCPCS: 99213

== ENCOUNTER 2025-08-26 09:22 | Outpatient (AMB) | payer OTHER, SELFPAY ==
[2025-08-26 09:28] VITALS: BP 126/76; PULSE 74; O2SAT 96; BMI 31.0
--- NOTE | 2025-08-26 09:28 | A.OFFPC_ITS ---
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: No Accompanied by: Self / Same As Patient Allergies No Known Allergies Allergy (Verified 08/26/25 09:57) Medication List - Last Reconciled 08/26/25 by Robson Mccoy MD brimonidine 0.2% 1 drp ophthalmic (eye) BID galcanezumab-gnlm (Emgality) 120 mg subcut .Q month sumatriptan succinate 6 mg (0.5 mL) subcut ONCE PRN 30 days sumatriptan succinate take 1 tab at onset of headache; if no relief, may repeat 1 tab after at least 2 hrs; max = 2 tabs/24 hrs PO tadalafil 20 mg PO DAILY PRN valacyclovir 1,000 mg PO DAILY Tobacco use date assessed: 08/26/25 Dental Screening Dental Screen Date: 08/26/25 Did you have a dental visit in the last 12 months?: Yes Did you have a dental problem in the last 6 months where you did not have access to dental care?: No Was dental information given to patient?: Patient has dentist HPI Annual Exam HPI Details Patient comes in today for his annual physical examination States that he feels okay He denies any increased headaches or dizziness - states that his migraine headaches have been well-controlled for a while now Denies any chest pains, no SOB No nausea/vomiting, no abdominal pain No change in bowel habits noted He denies any acute urinary symptoms He was not able to get his previously ordered labs done before coming in for his appointment today He had his last screening colonoscopy done with Dr. Concepcion in 03/2022 and he is now due for repeat colonoscopy (3 year recall) [facility] Medical History Insomnia Muscle tension headache Ischemic optic neuropathy of left eye Obesity (BMI 30-39.9) Genital herpes GERD (gastroesophageal reflux disease) Erectile dysfunction Cluster headache syndrome Surgical History History of esophagogastroduodenoscopy (EGD) Hx of colonoscopy History of temporal artery biopsy Family History Father Diabetes Mother History of breast cancer Hypertension Social History Household Members: Family Household Members Other:: Mother Housing: House Do you presently have visiting nurse or other home services: No Alcohol intake: current Alcohol intake frequency: a few times a week Alcohol type: beer Patient Tobacco Use Status: Current someday Tobacco user Tobacco use type: Cigar e-Cigarette/Vaping Use: Never Used Second Hand Smoke Exposure: Yes Substance Use Type: Marijuana Advance Directives Date on File: 12/22/20 service: No Current occupational status: employed Cognitive needs: No Hearing needs: No Vision needs: Yes (Glasses) Questionnaire PHQ-9 Over the last 2 weeks, how often have you been bothered by any of the following problems? 1. Little interest or pleasure in doing things: not at all 2. Feeling down, depressed, or hopeless: not at all 3. Trouble falling or staying asleep, or sleeping too much: not at all 4. Feeling tired or having little energy: not at all 5. Poor appetite or overeating: not at all 6. Feeling bad about yourself - or that you are a failure or have let yourself or your family down: not at all 7. Trouble concentrating on things, such as reading the newspaper or watching television: not at all 8. Moving or speaking so slowly that other people could have noticed. Or the opposite - being so fidgety or restless that you have been moving around a lot more than usual: not at all 9. Thoughts that you would be better off or of hurting yourself in some way: not at all Total score: 0 Depression Screening Interpretation: Negative Depression Screening Done: Yes 21327 - PHQ-9 Billing: Yes Source: Developed by Drs. Alexis Marina, Noemi Miranda, Eliazar Sheehan and colleagues, with an educational hanny from [employer]. Thrive Questionnaire Date Thrive assessed: 08/26/25 I am a: Patient What is your living situation today?: I have a steady place to live Within the past 12 months, did the food you bought not last and you didn't have the money to get more?: Never true Within the past 12 months, did you worry whether your food would run out before you got money to buy more?: Never true Do you have trouble paying for medicines?: No Do you have trouble getting transportation to medical appointments?: No Do you have trouble paying your heating and electricity bill?: No Do you have trouble taking care of your child, family member or friend?: No Do you have trouble with day-to-day activities such as bathing, preparing meals, shopping, managing finances, etc.?: No Are you currently unemployed and looking for a job?: No Are you interested in more education?: No Please select the resources that you would like help with: None Currently or been in a relationship where the following occur: No concerns reported THRIVE Score: 0 AUDIT C Alcohol Use Questionnaire (AUDIT-C) 1. How often do you have a drink containing alcohol?: 2-3 times a week 2. How many drinks containing alcohol do you have on a typical day when you are drinking?: 1 or 2 3. How often do you have six or more drinks on one occasion?: Never Total Score: 3 Score Reviewed/Action Taken: Yes HENRY-7 AMB Questionnaire HENRY-7 Date HENRY - 7 assessed: 08/21/24 Feeling nervous, anxious, or on edge: 0 = Not at all Not being able to stop or control worryin = Not at all Worrying too much about different things: 0 = Not at all Trouble relaxin = Not at all Being so restless that it is hard to sit still: 0 = Not at all Becoming easily annoyed or irritable: 0 = Not at all Feeling afraid as if something awful might happen: 0 = Not at all Total HENRY-7 score (0-4 normal; 5-9 mild; 10-14 moderate; 15-21 severe): 0 Source: Developed by Drs. Alexis Marina, Noemi Miranda, Eliazar Sheehan and colleagues, with an educational hanny from [employer]. Review of Systems Const Denies chills, Denies fatigue, Denies fever(s), Denies headache(s), Denies malaise and Denies weakness Eyes Denies blurry vision, Denies change in vision, Denies irritation and Denies itchy eyes ENT Denies dysphagia, Denies dizziness, Denies otalgia, Denies headache(s), Denies nasal congestion, Denies neck pain, Denies odynophagia and Denies sore throat Card Denies chest pain, Denies rapid heart rate, Denies irregular heart rhythm, Denies palpitations and Denies dyspnea Resp Denies chest congestion, Denies cough, Denies dyspnea and Denies wheezing GI Denies abdominal pain, Denies bloating, Denies constipation, Denies dysphagia, Denies heartburn, Denies diarrhea, Denies nausea, Denies odynophagia and Denies vomiting Denies hematuria, Denies difficulty urinating, Denies dysuria, Denies urinary frequency and Denies urinary urgency Musc Denies back pain, Denies arthralgias, Denies joint swelling, Denies muscle weakness and Denies neck pain Skin/Breast Denies change in pigmentation, Denies lesions, Denies rash and Denies unusual bruising Neuro Denies dizziness, Denies headache(s), Denies paresthesias and Denies weakness Endo Denies fatigue and Denies palpitations Aller/Immun Denies itchy eyes and Denies wheezing Physical exam (Primary Care) Vital Signs: Last Vital Signs Pulse 74 08/26/25 09:28 BP 126/76 08/26/25 09:28 Pulse Ox 96 08/26/25 09:28 Oxygen Delivery Method Room Air 08/26/25 09:28 BMI result Body Mass Index 31.0 Tobacco/Smoking Status: Tobacco use Status Tobacco use date assessed 08/26/25 08/26/25 09:33 Patient Tobacco Use Status Current someday Tobacco 08/26/25 09:33 Tobacco use type Cigar 08/26/25 09:33 e-Cigarette/Vaping Use Never Used 08/26/25 09:33 PHQ-9: PHQ-9 Score PHQ-9: Total score 0 08/26/25 09:33 Depression Screening Interpretation: Negative Thrive Assessment: Date of Thrive Assessment Date Thrive assessed 08/14/24 08/26/25 09:33 Currently or been in a relationship where the following occur: No concerns reported Const General: no acute distress, alert and awake Orientation/consciousness: patient oriented x3 HENMT Head: Yes normocephalic and Yes atraumatic Ears: external ears normal, TM's normal bilaterally and EAC's normal General nose exam: No nasal discharge present Face and sinus: Yes normal facial exam and Yes sinuses nontender Teeth and gingiva: dentition normal Throat: Yes posterior oropharynx normal and Yes tonsils normal (no TP congestion) Eyes Eyelids: Yes eyelids normal Conjunctivae: conjunctivae normal Pupils: Equal, round and reactive pupils present EOM: EOMs intact bilaterally Neck Neck: Yes no lymphadenopathy and Yes supple Thyroid: Thyroid normal Resp Auscultation: clear to auscultation bilaterally, no rales and no wheezes Cardio Rate: regular rate Rhythm: regular rhythm Heart sounds: no murmurs GI Palpation (GI): Soft to palpation, nontender and No hepatosplenomegaly present Auscultation: normal bowel sounds General: Yes no CVA tenderness Back/Spine/Pelvis Back: no CVA tenderness Thoracic/Lumbar Spine: thoracic and lumbar spine normal to inspection Skin Lesions: no lesions Rashes: no rashes Neuro General: patient oriented x3, moves all extremities, no focal motor deficits and CN's II-XI intact bilaterally Cranial nerves: Yes Equal, round and reactive pupils present Cognition (Neuro): normal cognition Gait exam (Neuro): Normal gait present Extrem General: Yes no clubbing, cyanosis or edema Coding Level of Care Code Est Pt Prev Care 40-64y(22861) Diagnoses Annual physical exam Z00.00 Chronic cluster headache, not intractable G44.029 Headache chronicity pattern: chronic headache Intractability: not intractable Gastroesophageal reflux disease without esophagitis K21.9 Esophagitis presence: without esophagitis Erectile dysfunction, unspecified erectile dysfunction type N52.9 Erectile dysfunction type: unspecified Genital herpes simplex, unspecified site A60.00 Herpes simplex infection site: unspecified Obesity (BMI 30-39.9) E66.9 Additional Codes PHQ-9 - 16108 - PHQ-9 Billing: Yes ([id number]) Assessment & Plan Assessment & Plan (1) Annual physical exam: Code(s): Z00.00 - Encounter for general adult medical examination without abnormal findings Category: Medical Plan: Have advised patient to go and get his labs done MICHELLE to complete his annual exam He had his last screening colonoscopy done with Dr. Concepcion in 03/2022 and he is now due for repeat colonoscopy (3 year recall) - will be referred for this (2) Cluster headache syndrome: Comment: S/P temporal artery biopsy in 01/2021 - negative for giant cell arteritis Code(s): G44.009 - Cluster headache syndrome, unspecified, not intractable Category: Medical Qualifiers: Headache chronicity pattern: chronic headache Intractability: not intractable Qualified Code(s): G44.029 - Chronic cluster headache, not intra ctable Plan: States that his headaches remain currently well-controlled on his current Rx Continue Emgality 120 mg SQ once a month Conitnue Sumatriptan 6 mg injection SQ BID PRN for acute headaches/symptoms Follow up with neurology (Dr. Amin) as scheduled (3) GERD (gastroesophageal reflux disease): Code(s): K21.9 - Gastro-esophageal reflux disease without esophagitis Category: Medical Qualifiers: Esophagitis presence: without esophagitis Qualified Code(s): K21.9 - Gastro-esophageal reflux disease without esophagitis Plan: Dietary restrictions reinforced (4) Erectile dysfunction: Code(s): N52.9 - Male erectile dysfunction, unspecified Category: Medical Qualifiers: Erectile dysfunction type: unspecified Qualified Code(s): N52.9 - Male erectile dysfunction, unspecified Plan: Continue Tadalafil 20 mg QD PRN (5) Genital herpes: Code(s): A60.00 - Herpesviral infection of urogenital system, unspecified Category: Medical Qualifiers: Herpes simplex infection site: unspecified Qualified Code(s): A60.00 - Herpesviral infection of urogenital system, unspecified Plan: Continue Valacyclovir 1000 mg QD (6) Obesity (BMI 30-39.9): Code(s): E66.9 - Obesity, unspecified Category: Medical Plan: Reinforced diet/exercise as tolerated/lose weight Plan To return in 1 year for his next annual physical examination Will also recheck his labs again in 1 year Orders: Orders Lipid Panel Today E78.00 - Pure hypercholesterolemia, unspecified, Z00.00 - Encounter for general adult medical examination without abnormal findings Prostate Specific Antigen Scr Today Z00.00 - Encounter for general adult medical examination without abnormal findings Complete Blood Count Auto Diff 1 Year D64.9 - Anemia, unspecified, N52.9 - Male erectile dysfunction, unspecified TSH reflex Free T4 1 Year E78.00 - Pure hypercholesterolemia, unspecified, N52.9 - Male erectile dysfunction, unspecified UA CC w/rflx Micro + Cult 1 Year N52.9 - Male erectile dysfunction, unspecified, R30.0 - Dysuria Vitamin D 25-OH Total 1 Year E55.9 - Vitamin D deficiency, unspecified, N52.9 - Male erectile dysfunction, unspecified Complete Blood Count Auto Diff Today D64.9 - Anemia, unspecified, Z00.00 - Encounter for general adult medical examination without abnormal findings Comprehensive Bernard. Panel Fast Today E78.00 - Pure hypercholesterolemia, unspecified, Z00.00 - Encounter for general adult medical examination without abnormal findings TSH reflex Free T4 Today E78.00 - Pure hypercholesterolemia, unspecified, Z00.00 - Encounter for general adult medical examination without abnormal findings UA CC w/rflx Micro + Cult Today R30.0 - Dysuria, Z00.00 - Encounter for general adult medical examination without abnormal findings Vitamin D 25-OH Total Today E55.9 - Vitamin D deficiency, unspecified, Z00.00 - Encounter for general adult medical examination without abnormal findings Comprehensive Bernard. Panel Fast 1 Year E78.00 - Pure hypercholesterolemia, unspecified, N52.9 - Male erectile dysfunction, unspecified Lipid Panel 1 Year E78.00 - Pure hypercholesterolemia, unspecified, N52.9 - Male erectile dysfunction, unspecified Prostate Specific Antigen Scr 1 Year N52.9 - Male erectile dysfunction, unspecified, Z00.00 - Encounter for general adult medical examination without abnormal findings Referrals Gastroenterology Referral Z12.11 - Encounter for screening for malignant neoplasm of colon
--- OUTSIDE RECORDS SUMMARY | 2025-08-26 10:35 | XMS_ITS | Patient Health Record ---
Author Organization [facility] Address [address] [place] [address] Care Team Providers Care Finishing Area Operator Name Role Phone Robert Abdul Primary Care Provider Reason For Referral No Information Plan Of Treatment No Information
--- OUTSIDE RECORDS SUMMARY | 2025-08-26 10:35 | XMS_ITS | Patient Health Record ---
Author Organization [facility] Address [address] [place] [address] Care Team Providers Care Manager Property Name Role Phone Darius CLEARY, Robson Primary Care Provider Alexis Christensen Unavailable [phone] Allergies No Known Allergies Reason For Referral [...] Problem Status W/U Status Risk Notes Problem 603383225 Encounter for screening for malignant neoplasm of colon (Z12.11) Active confirmed Problem 087017817 History of adenomatous polyp of colon (Z86.010) Active confirmed Problem 702207877 Change in bowel habits (R19.4) Active confirmed Problem 328738728 Gastroesophageal reflux disease, esophagitis presence not specified (K21.9) Active confirmed Problem 701722101 Irregular bowel habits (R19.8) Active confirmed Problem 08445497 Irritable bowel syndrome, unspecified type (K58.9) Active confirmed Problem Diverticulosis of colon (345275924) Diverticulosis of colon (K57.30) Active confirmed Problem 98917710 Spitting up bloo d (R04.2) Active confirmed Plan Of Treatment Pending Test Test Name Order Date CELIAC PANEL #10 02/23/2022 Pathology 04/02/2022 Future Test Test Name Order Date UPPER GI ENDOSCOPY 03/23/2018 COLONOSCOPY 03/23/2018 COLONOSCOPY 02/23/2022 Insurance Providers Payer Name Payer Address Payer Phone Subscriber Number Group Number Insured Name Patient Relationship to Insured Coverage Start Date Coverage End Date [facility] [address] [place] [address] [id number] SMILEY PASCAL Self - patient is the insured Medical (General) History Medical History History ICD Code Denies PR,DM,CVA,Lung disease,renal dise ase Migraines Temporal artery biopsy on the left-negat huey Irritable bowel syndrome Upper endoscopy 04/2018--normal except fo r a minimal hiatal hernia Colonoscopy 04/2018--small tu bular adenoma removed and a hyperplastic polyp removed; no inflammatory bowel disease and biopsies were negative for any definitive microscopic colitis Surgical History Surgery Date(Month/Year)
== END 2025-08-26 10:18 | disposition home or self-care (01) ==
LOC: HO.HMCH 09:23
PROVIDERS: PCP Internal Medicine; Visit Provider Internal Medicine
DX: Z00.00 Encounter for general adult medical examination without abnormal findings (principal); G44.029 Chronic cluster headache, not intractable; Z68.31 Body mass index [BMI] 31.0-31.9, adult; E66.9 Obesity, unspecified; K21.9 Gastro-esophageal reflux disease without esophagitis; N52.9 Male erectile dysfunction, unspecified; A60.00 Herpesviral infection of urogenital system, unspecified

== ENCOUNTER 2025-08-26 09:22 | Outpatient (REF) | payer OTHER, SELFPAY ==
--- OUTSIDE RECORDS SUMMARY | 2025-08-26 12:37 | XMS_ITS | Data Portability ---
Author Organization [place] - [facility], [facility] Integrity Director Address [address] [place] [address] Assessment No assessment recorded. Plan of Treatment Reminders Order Date Submit Date Provider Last Modified By Organization Details Last Modified Time Details Appointments None record ed. Lab None record ed. Referral None record ed. Procedures None record ed. Surgeries None record ed. Imaging None record ed. Medication Orders None record ed. Patient TargetsNo targets recorded. Patient InstructionsNo instructions recorded. Reason for Referral None Reported. Problems No Known Problems Medical Equipment None Reported. Allergies No known drug allergies Medications Name Sig Start Date Stop Date Status Note LastModified by Organization Details LastModified Time verapamil ER (SR) 120 mg tablet,exten ded release TAKE 1 TABLET BY MOUTH EVERY MORNING ORALLY ONCE A DAY 30 DAYS active Not Available Not Available No t Available verapamil ER 360 mg 24 hr capsule,exte nded release TAKE 1 CAPSULE BY MOUTH EVERY DAY active Not Available Not Available No t Available valacyclovir 1 gram tablet TAKE 1 TABLET BY MOUTH EVERY DAY active Not Available Not Available No t Available prednisone 20 mg tablet active Not Available Not Available Not Available erythromycin 5 mg/gram (0.5 %) eye ointment active Not Available Not Available Not Available brimonidine 0.2 % eye drops active Not Available Not Available Not Available dicyclomine 10 mg capsule PLEASE SEE ATTACHED FOR DETAILED DIRECTIONS active Not Available Not Available N ot Available verapamil ER 120 mg 24 hr capsule,exte nded release active Not Available Not Available Not Available sumatriptan 6 mg/0.5 mL subcutaneous pen injector active Not Available Not Available Not Available azithromycin 500 mg tablet active Not Available Not Available Not Available tadalafil 20 mg tablet TAKE 1 TABLET BY MOUTH EVERY DAY NEEDED active Not Available Not Available No t Available butalbital-a cetaminophen -caffeine 50 mg-300 mg-40 mg capsule active Not Available Not Available N ot Available Vitals Date Recorded Body temperature Provider Name a nd Address Organization Details Last Updated DateTime 12/31/2022 97 [degF] Aneglina Guidry LPN [address] [place] [address], [phone], [facility] [employer] [facility] 12/31/2022 14:43:24 Date Recorded Body temperature Provider Name a nd Address Organization Details Last Updated DateTime 08/20/2023 97.1 [degF] Urvashi Lou, EMT [facility] 08/20/2023 16:10:10 Date Recorded Body temperature Provider Name a nd Address Organization Details Last Updated DateTime 10/07/2021 97.1 [degF] Angelina Guidry LPN [address] [place] [address], [phone] [place] [address] 10/07/2021 17:33:21 Date Recorded Body temperature Provider Name a nd Address Organization Details Last Updated DateTime 11/07/2023 98 [degF] Farzaneh Staley [address] [place] [address], [phone], [facility] [employer] [facility] 11/07/2023 11:25:35 Social History None recorded. Functional Status None recorded. Mental Status None recorded. Family History Nothing Reported. Medical History No medical history recorded. Immunizations Vaccine Type Date Status Note Provider Nam e and Address Organization Details Recorded Time COVID-19, mRNA, LNP-S, PF, 100 mcg/0.5mL dose or 50 mcg/0.25mL dose 1 completed Angelina Guidry LPN [address] [place] [address], [phone], [facility] [employer] [facility] 10/07/2021 17:35:36 Influenza, MDCK, quadrivalent, preservative 1 completed Angelina Guidry HOME HEALTH CARE PHYSICIAN [address] [place] [address], [phone] 10/07/2021 17:50:35 COVID-19, mRNA, LNP-S, bivalent, PF, 50 mcg/0.5 mL or 25mcg/0.25 mL dose 3 completed Angelina Guidry, JANET [address] [facility], [place], [phone], [facility] 12/31/2022 14:45:01 Influenza, MDCK, quadrivalent, preservative 3 completed Angelina Guidry LPN [address] [facility], [place], [address], [facility] 12/31/2022 14:45:01 Influenza, MDCK, quadrivalent, preservative 3 completed SHYLA Gonsales [address] [facility], [place], [phone], [facility] 08/20/2023 16:18:59 COVID-19, mRNA, LNP-S, PF, mesfin-sucrose, 30 mcg/0.3 mL 3 completed Farzaneh Staley [address] [place] [address], [phone], [facility] 11/07/2023 11:28:25 Past Encounters Encounter ID Performer Location Encounter Start Date Encounter Closed Date Diagnosis/Indication Diagnosis SNOMED-CT Code Diagnosis ICD10 Code Diagnosis IMO Codes Diagnosis Note [id number] SHYLA Gonsales [facility] [address] [facility],[place] [address] 10/07/2021 14:06:47 10/07/2021 18:09:44 Administration of SARS-CoV-2 antigen vaccine [id number] Z23 Monitored pt for 15 minutes-no reaction occurred. Tolerated the injection well, states no concerns at this time. Pt informed of the common side effects associated with the vaccine and immunity is effective in 2 weeks. Vaccinatio n card/serie s is complete at this time. Influenza vaccine needed 2501761035 106 Z23 Patient tolerated the injection well. States no concerns at this time. Informed of common side effects associated with the vaccine. [id number] SHYLA Gonsales [facility] [address],[place] [address] 12/31/2022 14:40:22 12/31/2022 14:45:26 Administration of SARS-CoV-2 mRNA vaccine [id number] Z23 No hx of adverse reactions to previous COVID vaccinatio ns. Monitored the pt for 15 min, no adverse reaction occurred. Tolerated the injection well. Informed of common side effects associated with the vaccine and immunity is effective in 10-14 days. Vaccinatio n card/ series is complete at this time. Influenza vaccine needed [id number] 106 Z23 Patient tolerated the injection well. States no concerns at this time. Informed of common side effects associated with the vaccine. [id number] SHYLA Gonsales [facility] [address] [facility] [address] 08/20/2023 16:04:02 08/20/2023 16:39:41 Influenza vaccine needed [id number] 106 Z23 Patient tolerated the injection well. States no concerns at this time. Informed of common side effects associated with the vaccine. [id number] TESHA ENGEL PA-C [facility] [address],[facility] [place] [address] 11/07/2023 11:19:28 11/07/2023 11:28:54 Administration of SARS-CoV-2 vaccine [id number] Z23 Tolerated the injection well, states no concerns at this time. Informed of common side effects associated with the vaccine and immunity is effective in a few days. Vaccinatio n card/ series is complete at this time. Health Concerns Section Related Observation LastModified by Organization Detai ls LastModified Time None Recorded Concern Status LastModified by Organization Details LastModified Time None Recorded Advance Directives Directive None Recorded Payers Insurance Date Sequence Insurance Name Policy Number Policy Chandler Covered Member ID Chandler Member ID Guarantor Name 11/07/2023 1 [facility] INDEMNITY PLAN (PPO) [id number] 1 Wayne E Larrier [id number] Wayne E Larrier 10/07/2021 1 [facility] INDEMNITY PLAN - UNICARE [id number] 1 Wayne E Larrier [id number] Wayne Odilon Manriquerier Notes Date Note Type Note Provider Name and Address Organization Details Recorded Time 10/07/2021 text/html ROS as noted in the HPI Patient is present outside of [facility] at the [facility] in [place] for a Moderna Booster Covid-19 vaccine and a Flucelvax flu vaccine. Pre-vaccination screening form and vaccine card reviewed. Second Moderna administration date was over 6 months ago. Angelina Guidry LPN [address] [place] [address], [phone], [facility] [employer] 10/07/2021 17:36:11 12/31/2022 text/html ROS as noted in the HPI Patient is present outside the [facility] at the [facility] in [place] for a Moderna Bivalent Covid-19 booster vaccine and a flucelvax vaccine. Pre-vaccination screening form reviewed. Last COVID vaccine was administered over 2 months ago. Angelina Guidry LPN [address] [place] [address], [phone], [facility] [employer] 12/31/2022 14:45:18 08/20/2023 text/html ROS as noted in the HPI Pt is present at [facility] in [place] at [place] for a flu vaccine. Pre-vaccination screening form reviewed. SHYLA Gonsales [address] [place], [phone], [facility] [employer] 08/20/2023 16:19:02 11/07/2023 text/html ROS as noted in the HPI Patient is present outside of the [facility] outside of the [facility] in [facility] for a updated Pfizer Covid-19 vaccine. Pre-vaccination screening form and vaccine card reviewed. Last Pfizer booster dose was administered over 2 months ago. Farzaneh Staley [address] [place], [address], [facility] 11/07/2023 11:28:37
[2025-08-26 13:28] LABS: MANUAL DIFF FLAG NO
[2025-08-26 13:30] LABS: Hematocrit 43.4 % (42.0-52.0); Hemoglobin 14.5 g/dl (14.0-18.0); Imm Gran Abs Auto 0.01 X10*3/uL (0.00-0.03); Imm Gran Pct Auto 0.2 % (0.0-0.4); Lymphocytes Absolute Auto 1.6 X10*3/uL (1.2-4.9); Mean Corpuscular HGB Conc 33.4 g/dl (31.0-36.0); Mean Corpuscular Hemoglobin 27.8 pg (27.0-33.0); Mean Corpuscular Volume 83.1 fL (80.0-98.0); NRBC Abs Auto 0.000 X10*3/uL (0.0-0.012); NRBC Pct Auto 0.0 /100WBC (0.0-0.2); Platelet Count 266 X10*3/uL (160-400); Red Blood Count 5.22 X10*6/uL (4.60-5.80); White Blood Count 4.6 X10*3/uL (4.8-10.8)
[2025-08-26 13:39] LABS: Appearance Urine Turbid; Glucose Urine UA Negative (Negative); PH 5.5 (5.0-9.0); Specific Gravity - Urine 1.025 (1.005-1.025)
[2025-08-26 13:58] LABS: Alanine Aminotransferase 18 U/L (0-40); Albumin Level 4.4 g/dL (3.5-5.0); Alkaline Phosphatase 72 U/L (39-117); Anion Gap 8 (12-20); Aspartate Amino Transferase 20 U/L (5-37); Blood Urea Nitrogen 15 mg/dL (9-16); Calcium 8.9 mg/dL (8.4-10.2); Carbon Dioxide 28 mmol/L (22-29); Chloride 107 mmol/L (96-108); Cholesterol 216 mg/dL (<200); Estimated Glomerular Filt Rate > 60; HDL Cholesterol 49 mg/dL (>40); Potassium 4.3 mmol/L (3.3-5.1); Sodium 139 mmol/L (135-145); Total Protein 6.8 g/dL (6.5-8.0); Triglycerides 67 mg/dL (<150)
== END 2025-08-26 09:23 | disposition home or self-care (01) ==
LOC: HO.HMGCLDS 09:22
PROVIDERS: PCP Internal Medicine; Visit Provider Internal Medicine
DX: Z00.00 Encounter for general adult medical examination without abnormal findings (principal); Z12.5 Encounter for screening for malignant neoplasm of prostate; E78.00 Pure hypercholesterolemia, unspecified; D64.9 Anemia, unspecified; R30.0 Dysuria; N52.9 Male erectile dysfunction, unspecified; E55.9 Vitamin D deficiency, unspecified; G44.029 Chronic cluster headache, not intractable; K21.9 Gastro-esophageal reflux disease without esophagitis; A60.00 Herpesviral infection of urogenital system, unspecified; E66.9 Obesity, unspecified; Z68.31 Body mass index [BMI] 31.0-31.9, adult
CPT/HCPCS: 36415; 80053; 80061; 81003; 82306; 84153; 84443; 85025; 96127